=== PATIENT | female | born 1940 | race Caucasian/White ===

== ENCOUNTER → 2018-02-25 11:29 | Outpatient (CLI) | payer OTHER, MEDICAID, SELFPAY ==
[2018-02-25 12:11] LABS: Add Manual Diff / Slide Review NO; Basophils Percent Auto 1.1 % (0-2); Eosinophils Percent Auto 2.8 % (2-4); Hematocrit 43.2 % (36-46); Hemoglobin 14.6 g/dL (12.0-16.0); Lymphocytes Percent Auto 22.3 % (25-40); Mean Corpuscular HGB Conc 33.7 % (30-36); Mean Corpuscular Hemoglobin 31.7 PG (26-34); Mean Corpuscular Volume 94.2 fL (80-100); Monocytes Percent Auto 7.6 % (3-14); Neutrophils Absolute Auto 4900 /uL (3000-5900); Neutrophils Percent Auto 66.2 % (50-75); Platelet Count 233 X10^3/uL (150-400); Red Blood Cell Count 4.59 X10^6/uL (4.0-5.2); Red Cell Distribution Width 13.4 % (11.6-14.8); White Blood Cell Count 7.4 X10^3/uL (4.5-11.0)
[2018-02-25 12:59] LABS: Alanine Aminotransferase 20 IU/L (9-52); Albumin 4.2 g/dL (3.5-5.0); Albumin Globulin Ratio 1.4 (1.0-2.8); Alkaline Phosphatase 66 U/L (38-126); Aspartate Aminotransferase 31 IU/L (14-36); BUN Creatinine Ratio 14.5 (6-22); Bilirubin Total 0.7 mg/dL (0.2-1.3); Blood Urea Nitrogen 16 mg/dL (7-17); Calcium 9.3 mg/dL (8.4-10.2); Carbon Dioxide 34 mmol/L (22-32); Chloride 100 mmol/L (98-107); Cholesterol 241 mg/dL (140-199); Estimated Glomerular Filt Rate 48.3 mL/min (>60); Glucose 88 mg/dL (80-110); HDL Cholesterol 68 mg/dL (40-60); HEMOLYSIS < 15 (0-50); LDL Cholesterol Calculated 149 mg/dL (<100); Potassium 4.8 mmol/L (3.4-5.1); Sodium 142 mmol/L (137-145); Total Protein 7.2 g/dL (6.3-8.2); Triglycerides 119 mg/dL (35-150)
== END ==
PROVIDERS: Visit Provider Nurse Practitioner
DX: E78.2 Mixed hyperlipidemia (principal)
CPT/HCPCS: 36415; 80053; 80061; 85025

== ENCOUNTER → 2018-03-29 07:51 | Outpatient (CLI) | payer OTHER, MEDICAID, SELFPAY ==
[2018-03-29 09:17] LABS: Blood Urea Nitrogen 16 mg/dL (7-17); Calcium 9.4 mg/dL (8.4-10.2); Carbon Dioxide 29 mmol/L (22-32); Chloride 101 mmol/L (98-107); Estimated Glomerular Filt Rate 53.9 mL/min (>60); Glucose 101 mg/dL (80-110); HEMOLYSIS < 15 (0-50); Potassium 4.8 mmol/L (3.4-5.1); Sodium 141 mmol/L (137-145)
== END ==
PROVIDERS: Visit Provider Nurse Practitioner
DX: N28.9 Disorder of kidney and ureter, unspecified (principal)
CPT/HCPCS: 36415; 80048

== ENCOUNTER → 2018-04-26 08:19 | Outpatient (CLI) | payer OTHER, MEDICAID, SELFPAY ==
--- NOTE | 2018-04-26 08:22 | DI.RAD.S_ITS ---
PROCEDURE: XR CHEST 2V INDICATIONS: COUGH TECHNIQUE: 2 views of the chest were acquired. COMPARISON: [facility], CT, CT ANGIO CHEST PE, 12/21/2014, 12:05. [facility], CR, XR CHEST 2VW, 05/02/2015, 9:16. FINDINGS: Surgical changes and devices: None. Lungs and pleura: No pleural effusions or pneumothorax. Lungs are clear, aside from mild bibasilar scarring.. Mediastinum: Mediastinal contours are normal. Heart size is normal. Bones and chest wall: No suspicious bony abnormalities. Soft tissues appear unremarkable. IMPRESSION: Bibasilar scarring. No acute cardiopulmonary disease. Dictated by: David Walsh RRA Interpreted: Luz Elena Butcher MD on 04/26/2018 at 10:01 Approved by: Luz Elena Butcher MD, PhD on 04/26/2018 at 16:21
== END ==
PROVIDERS: Visit Provider Nurse Practitioner
DX: R05 Cough (principal); J98.4 Other disorders of lung
CPT/HCPCS: 71046

== ENCOUNTER → 2018-06-04 15:15 | Outpatient (CLI) | payer OTHER, MEDICAID, SELFPAY ==
[2018-06-04 16:44] LABS: Add Manual Diff / Slide Review NO; Basophils Absolute Auto 100 /uL (0-100); Eosinophils Absolute Auto 200 /uL (0-450); Eosinophils Percent Auto 2.7 % (2-4); Hematocrit 44.1 % (36-46); Hemoglobin 14.8 g/dL (12.0-16.0); Lymphocytes Absolute Auto 1500 /uL (1100-4500); Lymphocytes Percent Auto 20.1 % (25-40); Mean Corpuscular HGB Conc 33.5 % (30-36); Mean Corpuscular Hemoglobin 31.4 PG (26-34); Mean Corpuscular Volume 93.8 fL (80-100); Monocytes Absolute Auto 700 /uL (0-900); Monocytes Percent Auto 10.3 % (3-14); Neutrophils Absolute Auto 4800 /uL (1500-7000); Neutrophils Percent Auto 65.9 % (50-75); Platelet Count 257 X10^3/uL (150-400); Red Cell Distribution Width 13.5 % (11.6-14.8); White Blood Cell Count 7.3 X10^3/uL (4.5-11.0)
[2018-06-04 17:00] LABS: Alanine Aminotransferase 21 IU/L (9-52); Albumin 4.3 g/dL (3.5-5.0); Albumin Globulin Ratio 1.3 (1.0-2.8); Alkaline Phosphatase 74 U/L (38-126); Aspartate Aminotransferase 19 IU/L (14-36); Bilirubin Total 0.6 mg/dL (0.2-1.3); Blood Urea Nitrogen 18 mg/dL (7-17); Calcium 9.6 mg/dL (8.4-10.2); Carbon Dioxide 25 mmol/L (22-32); Chloride 103 mmol/L (98-107); Estimated Glomerular Filt Rate 43.7 mL/min (>60); Globulin 3.2 g/dL (1.7-4.1); Glucose 106 mg/dL (80-110); HEMOLYSIS 28 (0-50); Potassium 4.4 mmol/L (3.4-5.1); Sodium 138 mmol/L (137-145); Total Protein 7.5 g/dL (6.3-8.2)
== END ==
PROVIDERS: Visit Provider Physician Assistant
DX: R30.0 Dysuria (principal); R31.9 Hematuria, unspecified
CPT/HCPCS: 80053; 85025; 87077; 87086; 87186

== ENCOUNTER → 2018-06-09 11:03 | Outpatient (CLI) | payer OTHER, MEDICAID, SELFPAY ==
--- NOTE | 2018-06-09 11:07 | DI.RAD.S_ITS ---
PROCEDURE: XR SHOULDER LT MIN 2V INDICATIONS: left shoulder pain TECHNIQUE: 3 views of the shoulder were acquired. COMPARISON: None. FINDINGS: Bones: No fractures or dislocations. No suspicious bony lesions. Visualized ribs appear intact. Severe scoliosis. There is glenohumeral degenerative spurring and subchondral sclerosis. Soft tissues: No suspicious soft tissue calcifications. IMPRESSION: Mild left shoulder joint degeneration. Scoliosis. Dictated by: Francisco Javier Padilla M.D. on 06/09/2018 at 11:35 Approved by: Francisco Javier Padilla M.D. on 06/09/2018 at 11:37
== END ==
PROVIDERS: Visit Provider Physician Assistant
DX: M25.512 Pain in left shoulder (principal); M19.012 Primary osteoarthritis, left shoulder; M41.9 Scoliosis, unspecified
CPT/HCPCS: 73030

== ENCOUNTER → 2018-06-22 14:05 | Outpatient (CLI) | payer OTHER, MEDICAID, SELFPAY ==
--- NOTE | 2018-06-22 | DI.RAD.S_ITS ---
PROCEDURE: XR CHEST 2V INDICATIONS: COUGH TECHNIQUE: 2 views of the chest were acquired. COMPARISON: [facility], CR, XR CHEST 2VW, 05/02/2015, 9:16. [facility], CR, XR CHEST 2V, 04/26/2018, 8:22. FINDINGS: Surgical changes and devices: None. Lungs and pleura: Lungs are hyperinflated. Bibasilar opacities may be scars, atelectasis or pneumonia. Small right pleural effusion may be present. No pneumothorax. Mediastinum: Mediastinal contours are normal. Heart size is normal. Bones and chest wall: No suspicious bony abnormalities. Soft tissues appear unremarkable. IMPRESSION: 1. Bibasilar opacities may be scars, atelectasis or pneumonia. 2. COPD. 3. Possible small left effusion. Dictated by: Ponce Bergman M.D. on 06/22/2018 at 16:40 Approved by: Ponce Bergman M.D. on 06/22/2018 at 16:42
== END ==
PROVIDERS: PCP Nurse Practitioner; Visit Provider Physician Assistant
DX: R05 Cough (principal); J44.9 Chronic obstructive pulmonary disease, unspecified
CPT/HCPCS: 71046

== ENCOUNTER → 2018-08-17 07:47 | Outpatient (CLI) | payer OTHER, MEDICAID, SELFPAY ==
[2018-08-17 09:47] LABS: Alanine Aminotransferase 14 IU/L (9-52); Albumin 3.9 g/dL (3.5-5.0); Albumin Globulin Ratio 1.3 (1.0-2.8); Alkaline Phosphatase 70 U/L (38-126); Aspartate Aminotransferase 13 IU/L (14-36); Bilirubin Total 0.8 mg/dL (0.2-1.3); Blood Urea Nitrogen 15 mg/dL (7-17); Calcium 8.7 mg/dL (8.4-10.2); Carbon Dioxide 29 mmol/L (22-32); Chloride 102 mmol/L (98-107); Cholesterol 160 mg/dL (140-199); Estimated Glomerular Filt Rate 53.9 mL/min (>60); Glucose 96 mg/dL (80-110); HDL Cholesterol 47 mg/dL (40-60); HEMOLYSIS < 15 (0-50); LDL Cholesterol Calculated 90 mg/dL (<100); Sodium 139 mmol/L (137-145); Total Protein 6.9 g/dL (6.3-8.2); Triglycerides 115 mg/dL (35-150)
== END ==
PROVIDERS: PCP Nurse Practitioner; Visit Provider Nurse Practitioner
DX: E78.2 Mixed hyperlipidemia (principal)
CPT/HCPCS: 36415; 80053; 80061

== ENCOUNTER → 2018-09-02 12:02 | Outpatient (CLI) | payer OTHER, MEDICAID, SELFPAY | PROVIDERS: PCP Nurse Practitioner; Visit Provider Nurse Practitioner | DX: I51.7 Cardiomegaly (principal) ==

== ENCOUNTER 2018-09-14 09:00 | Outpatient (RCR) | payer OTHER, MEDICAID, SELFPAY ==
--- NOTE | 2018-07-15 16:00 | PT.OIE ---
Current Diagnoses Pain in left shoulder (07/15/18) Stiffness of left shoulder, not elsewhere classified (07/15/18) Muscle weakness (generalized) (07/15/18) Provider Visit Care Team Role Provider Type SADA Wood Primary Care Provider Non-Staff Specialty: Medical Address: [address] [place] [address], [phone] Email: David Oliver PA-C Attending Provider [employer] Project Manager Specialty: Medical Address: [address] [place] [address], [id number] Email: Physical Therapy Initial Evaluation PT-OP-A Visit Information Start: 07/16/18 15:05 Freq: Status: Active Protocol: Document 07/15/18 16:00 RCC (Rec: 07/16/18 15:24 RCC [email or web address]) Out-Patient Physical Therapy Visit Information Visit Information Visit Type Initial Evaluation Visit Start Time 16:00 Visit Stop Time 16:55 Total Visit Minutes 55 Visit Number 1 Number of CASH MANAGEMENT COORDINATOR Visits 0 Evaluation Information Evaluation Date 07/15/18 PT-OP-B Current Condition Start: 07/16/18 15:05 Freq: Status: Active Protocol: Document 07/15/18 16:00 RCC (Rec: 07/16/18 17:15 RCC [email or web address]) Current Condition History of Current Condition Onset Date April 2018 or May 2018 Current Complaints L shoulder pain, weakness History of Current Condition Pt is a 78 y/o female presenting to physical therapy with a c/o L shoulder pain. Onset in April 2018 or May 2018, pt woke up one morning with shoulder pain on the L side. She felt like she may have slept on it wrong, but continued to be painful, along with weakness and worsening ROM. She denies any trauma to the L shoulder. She also denies any numbness or tingling. Pt is R hand dominant. Aggravating factors include: reaching behind her back and away from her body. The only relieving factor the pt has found is to not move her L hand or arm and always support it closer to her body. She has not found any medications to help and she has done ice with some assistance for short periods. Radiograph of L shoulder showed glenohumeral degenerative spurring and subchondral sclerosis, no calcifications in soft tissue. Radiograph also showed severe scoliosis. Pt has not had MRI yet. She does an exercises class weekly at the [facility], but is unable to participate in UE work due to her shoulder pain and limited motion. Prior Treatments and Tests radiograph (see above) Future Testing and Treatments Planned MRI of L shoulder (if PT fails ) Treatment Goals Patient/Caregiver Goals to be able to participate in [facility] strength and balance class, decrease pain Prior Functional Status Baseline Function- Recreation/Hobbies able to participate in [facility] balance and strength class without restrictions or pain Current Functional Impairments (Reported) Functional Limitations- Recreation/ unable to do UE work during Hobbies the [facility] strength and balance class. Personal Factors Other Personal Factors That May Effect hearing impairment (loss of Therapy/Recovery hearing but unable to afford hearing aids per pt), age- related visual problems, depression, pt reports tremors (on carbidopa- levadopa) PT-OP-C Subjective Start: 07/16/18 15:05 Freq: Status: Active Protocol: Document 07/15/18 16:00 RCC (Rec: 07/16/18 17:15 [facility] [email or web address]) OP-PT Subjective Patient Comments Patient Reported Progress Worse Patient Questionnaires Quick Dash- Upper Extremity Quick Dash UE Score 59.1 OP-PT Pain Assessment Location L shoulder Intensity 5 Scale Used Numeric (1 - 10) PT-OP-E Functional Tests Start: 07/16/18 15:05 Freq: Status: Active Protocol: Document 07/15/18 16:00 RCC (Rec: 07/16/18 17:15 [facility] [email or web address]) Functional Tests Apley's Scratch Test Action 1: The subject is instructed to touch the opposite shoulder with his/her hand. This motion checks Glenohumeral adduction, internal rotation , horizontal adduction and scapular protraction Action 2: The subject is instructed to place his/her arm overhead and reach behind the neck to touch his/her upper back. This motion checks Glenohumeral abduction, external rotation and scapular upward rotation and elevation. Action 3: The subject puts his/her hand on the lower back and reaches upward as far as possible. This motion checks glenohumeral adduction, internal rotation and scapular retraction with downward rotation Action 1- Left unable Action 1- Right able to perform Action 2- Left top of head Action 2- Right occiput Action 3- Left L5 Action 3- Right T6 PT-OP-F Manual Assessment Start: 07/16/18 15:05 Freq: Status: Active Protocol: Document 07/15/18 16:00 RCC (Rec: 07/16/18 17:15 RCC [email or web address]) Manual Assessments Soft Tissue Assessment Soft Tissue Mobility Assessment Tenderness to palpation: L supraspinatus, infraspinatus, B rhomboids, L UT and levator, L bicep tendon (long head), L anterior deltoid and pecs PT-OP-H Neuro Start: 07/16/18 15:05 Freq: Status: Active Protocol: Document 07/15/18 16:00 RCC (Rec: 07/16/18 17:15 RCC [email or web address]) Sensation Evaluation Gross Sensation Gross Sensation WNL Deep Tendon Reflex & Clonus Assessment Deep Tendon Reflex Bilateral Brachioradialis Deep Tendon Reflex 2+ Normal Bilateral Tricep Deep Tendon Reflex 2+ Normal Bilateral Bicep Deep Tendon Reflex 2+ Normal PT-OP-J Posture/Palpation/Skin Start: 07/16/18 15:05 Freq: Status: Active Protocol: Document 07/15/18 16:00 RCC (Rec: 07/16/18 17:15 RCC [email or web address]) Posture Evaluation Comments Posture Comments moderate forward head and rounded shoulders. L shoulder elevated with position of L shoulder adduction, IR and elbow flexion. PT-OP-K Range of Motion Start: 07/16/18 15:05 Freq: Status: Active Protocol: Document 07/15/18 16:00 RCC (Rec: 07/16/18 17:15 RCC [email or web address]) Shoulder Goniometric Range of Motion Shoulder Measured in Degrees Left Passive Testing Position Supine Flexion 145 Abduction 103 External Rotation at 0 degrees Abduction 50 Internal Rotation 60 Left Active Testing Position Sitting Flexion 90 Abduction 55 Right Passive Testing Position Supine Flexion 170 Abduction 165 External Rotation at 90 degrees 90 Abduction Internal Rotation 80 Right Active Testing Position Sitting Flexion 170 Abduction 160 PT-OP-L Special Tests Start: 07/16/18 15:05 Freq: Status: Active Protocol: Document 07/15/18 16:00 RCC (Rec: 07/16/18 17:15 RCC [email or web address]) Special Tests Cervical Spine Special Tests Spurling's Test Test Results negative Foraminal Compression Test Results negative Shoulder Special Tests Yergason's Biceps Test Results positive L Speed's Biceps Test Results positive L Bansal Kelvin Impingement Test Results positive L Empty Can Test Results positive L Drop Arm Rotator Cuff Test Results positive L Belly Press Test Results negative Lift-Off Rotator Cuff Test Results negative Comments painful but able to do with L hand PT-OP-M Strength Start: 07/16/18 15:05 Freq: Status: Active Protocol: Document 07/15/18 16:00 RCC (Rec: 07/16/18 17:15 [facility] [email or web address]) Shoulder Strength Shoulder Manual Muscle Testing Left Flexion 2 Poor Abduction (C5) 2 Poor External Rotation 3 Fair Internal Rotation 3 Fair Horizontal Abduction 3+ Fair+ Horizontal Adduction 3+ Fair+ Right Flexion 5 Normal Abduction (C5) 5 Normal External Rotation 5 Normal Internal Rotation 5 Normal Horizontal Abduction 5 Normal Horizontal Adduction 5 Normal Elbow/Forearm Strength Elbow and Forearm Manual Muscle Testing Right Flexion (C6) 3+ Fair+ Extension (C7) 4 Good Left Flexion (C6) 4+ Good+ Extension (C7) 4+ Good+ PT-OP-Q Treatments Start: 07/16/18 15:05 Freq: Status: Active Protocol: Document 07/15/18 16:00 RCC (Rec: 07/16/18 17:15 [facility] [email or web address]) Therapeutic Exercises Supine Exercises scapular retraction/shoulder extension Supine Exercise Name scapular retraction lying supine on table Side bilateral Reps/Minutes x10 T-bar Supine Exercise Name shoulder flexion and ER/IR Side bilateral Reps/Minutes x5 each PT-OP-R Modalities Start: 07/16/18 15:05 Freq: Status: Active Protocol: Document 07/15/18 16:00 RCC (Rec: 07/16/18 17:15 [facility] [email or web address]) Hot Pack/Cold Pack Treatment Cold Pack Location L shoulder Patient Position Hooklying Treatment Duration (minutes) 10 Patient Tolerance Good PT-OP-T Assessment and Plan Start: 07/16/18 15:05 Freq: Status: Active Protocol: Document 07/15/18 16:00 RCC (Rec: 07/16/18 17:15 [facility] [email or web address]) Physical Therapy Assessment Rehab Potential Rehabilitation Potential Fair Evaluation Complexity Number of Personal Factors/Comorbidities 3 or More Number of Body Systems Impaired 4 or More Clinical Presentation at Evaluation Evolving Impairments Impairments Activity Tolerance Functional Activities Pain Posture ROM Soft Tissue Mobility Strength Goals L shoulder strength Impairment L shoulder strength Short Term Goal (STG) L shoulder MMT at least 3+/5 with flexion, abduction, ER, and IR. STG Duration 6 weeks In Service Educator Goal (LTG) L shoulder MMT at least 4/5 with flexion, abduction, ER, and IR to improve ability to tolerate handling/holding light to moderate objects without increased L shoulder pain, and to return to her [facility] strengthening course without restrictions. LTG Duration 12 weeks L shoulder ROM Impairment L shoulder ROM Short Term Goal (STG) L shoulder AROM (sitting for flexion and abduction, supine for IR and ER): flexion 120 deg, abduction 100 deg, ER 65 deg, IR 70 deg. STG Duration 6 weeks Halfway Goal (LTG) L shoulder AROM (sitting for flexion and abduction, supine for IR and ER): flexion 150 deg, abduction 120 deg, ER 75 deg, IR 80 deg to be able to reach behind back, overhead, and away from body, and to return to her [facility] strengthening course without restrictions. LTG Duration 12 weeks pain L shoulder Impairment 5/10 rating of L shoulder pain In Service Educator Goal (LTG) 3/10 or less rating of pain in the L shoulder with normal daily activities (i.e. don/ doffing jacket). LTG Duration 12 weeks Quick DASH Impairment 59.1 disability score on the Quick DASH Short Term Goal (STG) <50 disability score on the Quick DASH to demonstrate improve functional ability of the LUE. STG Duration 6 weeks In Service Educator Goal (LTG) 40 or less disability score on the Quick DASH to demonstrate improve functional ability of the LUE. LTG Duration 12 weeks Assessment Summary Assessment Pt presents with signs and symptoms consistent with likely rotator cuff tear and possible tear or tendinosis of biceps long head tendon. Pt difficult to assess further with special testing due to limited ROM and pain. If pt does not improve with physical therapy, recommend MRI of L shoulder to further assist with treatment and plan for pt recovery and/or options going forward. Pt with limited ROM and strength of the L shoulder , and has not been using her L arm functionally for 1-2 months, limiting her ability to perform daily tasks and unable to participate in her usual recreational activities (balance and strengthening class at the [facility]). Given the pt's limitations with LUE function, strenth, ROM and pain in the L shoulder , she will likely require a prolonged amount of time participating in physical therapy to make significant progress. Pt able to tolerate light AAROM activities today, and will requir further skilled outpatient physical therapy to progress her ROM, strength, and establish and monitor a home exercise program to be performed and progressed as tolerated. Pt also would greatly benefit from modalities and manual therapy to decrease pain. Physical Therapy Plan Frequency and Duration Frequency of Treatment 2x/Week Duration of Treatment 12 weeks Plan of Care Start Date 07/15/18 Plan of Care End Date 10/07/18 Therapeutic Interventions Therapeutic Interventions Aquatic Therapy Home Exercise Program Joint Mobilizations Manual Therapy Neuromuscular Re-education Patient/Caregiver Education Self-Care/Home Management Soft Tissue Mobilization Taping Therapeutic Activities Therapeutic Exercises Modalities Cold Pack/Ice Massage Electric Stimulation Hot Packs Iontophoresis Ultrasound Other Therapeutic Interventions Iontophoresis with dexamethasone 4 mg/mL. Next Visit Focus/Plan Next Note Type Treatment Note Next Visit Plan advance AAROM as tolerated with T-bar, leyla's, modalities including ultrasound and ice for pain; scapular retraction in sitting ; UT and levator stretching
--- NOTE | 2018-07-20 10:34 | PT.OTN ---
Current Diagnoses Pain in left shoulder (07/20/18) Physical Therapy Treatment Note PT-OP-A Visit Information Start: 07/16/18 15:05 Freq: Status: Active Protocol: Document 07/20/18 10:25 GGD (Rec: 07/20/18 10:33 GGD [email or web address]) Out-Patient Physical Therapy Visit Information Visit Information Visit Type Treatment Note Visit Start Time 09:00 Visit Stop Time 09:50 Total Visit Minutes 50 Visit Number 2 Number of HASH SLINGER Visits 1 Evaluation Information Evaluation Date 07/15/18 PT-OP-B Current Condition Start: 07/16/18 15:05 Freq: Status: Active Protocol: Document 07/15/18 16:00 RCC (Rec: 07/16/18 17:15 RCC [email or web address]) Current Condition History of Current Condition Onset Date April 2018 or May 2018 Current Complaints L shoulder pain, weakness History of Current Condition Pt is a 78 y/o female presenting to physical therapy with a c/o L shoulder pain. Onset in April 2018 or May 2018, pt woke up one morning with shoulder pain on the L side. She felt like she may have slept on it wrong, but continued to be painful, along with weakness and worsening ROM. She denies any trauma to the L shoulder. She also denies any numbness or tingling. Pt is R hand dominant. Aggravating factors include: reaching behind her back and away from her body. The only relieving factor the pt has found is to not move her L hand or arm and always support it closer to her body. She has not found any medications to help and she has done ice with some assistance for short periods. Radiograph of L shoulder showed glenohumeral degenerative spurring and subchondral sclerosis, no calcifications in soft tissue. Radiograph also showed severe scoliosis. Pt has not had MRI yet. She does an exercises class weekly at the [employer] [facility] [place], but is unable to participate in UE work due to her shoulder pain and limited motion. Prior Treatments and Tests radiograph (see above) Future Testing and Treatments Planned MRI of L shoulder (if PT fails ) Treatment Goals Patient/Caregiver Goals to be able to participate in [facility] strength and balance class, decrease pain Prior Functional Status Baseline Function- Recreation/Hobbies able to participate in [employer] [facility] [employer] balance and strength class without restrictions or pain Current Functional Impairments (Reported) Functional Limitations- Recreation/ unable to do UE work during Hobbies the [facility] strength and balance class. Personal Factors Other Personal Factors That May Effect hearing impairment (loss of Therapy/Recovery hearing but unable to afford hearing aids per pt), age- related visual problems, depression, pt reports tremors (on carbidopa- levadopa) PT-OP-C Subjective Start: 07/16/18 15:05 Freq: Status: Active Protocol: Document 07/20/18 10:25 GGD (Rec: 07/20/18 10:33 GGD [email or web address]) OP-PT Subjective Patient Comments Patient Comments Pt states that her shoulder was sore after climbing in and out of her daughters truck. PT-OP-E Functional Tests Start: 07/16/18 15:05 Freq: Status: Active Protocol: Document 07/15/18 16:00 RCC (Rec: 07/16/18 17:15 RCC [email or web address]) Functional Tests Apley's Scratch Test Action 1: The subject is instructed to touch the opposite shoulder with his/her hand. This motion checks Glenohumeral adduction, internal rotation , horizontal adduction and scapular protraction Action 2: The subject is instructed to place his/her arm overhead and reach behind the neck to touch his/her upper back. This motion checks Glenohumeral abduction, external rotation and scapular upward rotation and elevation. Action 3: The subject puts his/her hand on the lower back and reaches upward as far as possible. This motion checks glenohumeral adduction, internal rotation and scapular retraction with downward rotation Action 1- Left unable Action 1- Right able to perform Action 2- Left top of head Action 2- Right occiput Action 3- Left L5 Action 3- Right T6 PT-OP-F Manual Assessment Start: 07/16/18 15:05 Freq: Status: Active Protocol: Document 07/15/18 16:00 RCC (Rec: 07/16/18 17:15 RCC [email or web address]) Manual Assessments Soft Tissue Assessment Soft Tissue Mobility Assessment Tenderness to palpation: L supraspinatus, infraspinatus, B rhomboids, L UT and levator, L bicep tendon (long head), L anterior deltoid and pecs PT-OP-H Neuro Start: 07/16/18 15:05 Freq: Status: Active Protocol: Document 07/15/18 16:00 RCC (Rec: 07/16/18 17:15 RCC [email or web address]) Sensation Evaluation Gross Sensation Gross Sensation WNL Deep Tendon Reflex & Clonus Assessment Deep Tendon Reflex Bilateral Brachioradialis Deep Tendon Reflex 2+ Normal Bilateral Tricep Deep Tendon Reflex 2+ Normal Bilateral Bicep Deep Tendon Reflex 2+ Normal PT-OP-J Posture/Palpation/Skin Start: 07/16/18 15:05 Freq: Status: Active Protocol: Document 07/15/18 16:00 RCC (Rec: 07/16/18 17:15 RCC [email or web address]) Posture Evaluation Comments Posture Comments moderate forward head and rounded shoulders. L shoulder elevated with position of L shoulder adduction, IR and elbow flexion. PT-OP-K Range of Motion Start: 07/16/18 15:05 Freq: Status: Active Protocol: Document 07/15/18 16:00 RCC (Rec: 07/16/18 17:15 RCC [email or web address]) Shoulder Goniometric Range of Motion Shoulder Measured in Degrees Left Passive Testing Position Supine Flexion 145 Abduction 103 External Rotation at 0 degrees Abduction 50 Internal Rotation 60 Left Active Testing Position Sitting Flexion 90 Abduction 55 Right Passive Testing Position Supine Flexion 170 Abduction 165 External Rotation at 90 degrees 90 Abduction Internal Rotation 80 Right Active Testing Position Sitting Flexion 170 Abduction 160 PT-OP-L Special Tests Start: 07/16/18 15:05 Freq: Status: Active Protocol: Document 07/15/18 16:00 RCC (Rec: 07/16/18 17:15 RCC [email or web address]) Special Tests Cervical Spine Special Tests Spurling's Test Test Results negative Foraminal Compression Test Results negative Shoulder Special Tests Yergason's Biceps Test Results positive L Speed's Biceps Test Results positive L Bansal Kelvin Impingement Test Results positive L Empty Can Test Results positive L Drop Arm Rotator Cuff Test Results positive L Belly Press Test Results negative Lift-Off Rotator Cuff Test Results negative Comments painful but able to do with L hand PT-OP-M Strength Start: 07/16/18 15:05 Freq: Status: Active Protocol: Document 07/15/18 16:00 RCC (Rec: 07/16/18 17:15 RCC [email or web address]) Shoulder Strength Shoulder Manual Muscle Testing Left Flexion 2 Poor Abduction (C5) 2 Poor External Rotation 3 Fair Internal Rotation 3 Fair Horizontal Abduction 3+ Fair+ Horizontal Adduction 3+ Fair+ Right Flexion 5 Normal Abduction (C5) 5 Normal External Rotation 5 Normal Internal Rotation 5 Normal Horizontal Abduction 5 Normal Horizontal Adduction 5 Normal Elbow/Forearm Strength Elbow and Forearm Manual Muscle Testing Right Flexion (C6) 3+ Fair+ Extension (C7) 4 Good Left Flexion (C6) 4+ Good+ Extension (C7) 4+ Good+ PT-OP-Q Treatments Start: 07/16/18 15:05 Freq: Status: Active Protocol: Document 07/20/18 10:25 GGD (Rec: 07/20/18 10:33 GGD [email or web address]) Therapeutic Exercises Supine Exercises 1 Supine Exercise Name supine veena ut stretch Side bilateral scapular retraction/shoulder extension Supine Exercise Name scapular retraction lying supine on table Side bilateral Reps/Minutes x10 T-bar Supine Exercise Name shoulder flexion and ER/IR Side bilateral Reps/Minutes x5 each Sitting Exercises pulleys Sitting Exercise Name flexion and abduction Side left Reps/Minutes 10 x each Manual Therapy Treatment Soft Tissue Mobilization 1 Body Location left upper trap, pec, and levator Mobilization Type Myofascial Release Rolling Intensity/Depth Superficial Body Position Supine PT-OP-R Modalities Start: 07/16/18 15:05 Freq: Status: Active Protocol: Document 07/20/18 10:25 GGD (Rec: 07/20/18 10:33 GGD [email or web address]) Hot Pack/Cold Pack Treatment Cold Pack Location L shoulder Patient Position Hooklying Treatment Duration (minutes) 10 Patient Tolerance Good Ultrasound Therapy Treatment left shoulder Treatment Duration (minutes) 8 Patient Position Supine Coupling Medium Ultrasound Gel Frequency Setting (mHz) 3 Mode Setting Continuous PT-OP-T Assessment and Plan Start: 07/16/18 15:05 Freq: Status: Active Protocol: Document 07/20/18 10:25 GGD (Rec: 07/20/18 10:33 GGD [email or web address]) Physical Therapy Assessment Assessment Summary Assessment Pt need cues for exerices. She had good tolerance to light AAROM activities. She did have decrease in pain with veena therapy and modalities. Physical Therapy Plan Frequency and Duration Frequency of Treatment 2x/Week Duration of Treatment 12 weeks Plan of Care Start Date 07/15/18 Plan of Care End Date 10/07/18 Therapeutic Interventions Therapeutic Interventions Aquatic Therapy Home Exercise Program Joint Mobilizations Manual Therapy Neuromuscular Re-education Patient/Caregiver Education Self-Care/Home Management Soft Tissue Mobilization Taping Therapeutic Activities Therapeutic Exercises Modalities Cold Pack/Ice Massage Electric Stimulation Hot Packs Iontophoresis Ultrasound Other Therapeutic Interventions Iontophoresis with dexamethasone 4 mg/mL. Next Visit Focus/Plan Next Note Type Treatment Note Next Visit Plan Progress ROM activities and pain control
--- NOTE | 2018-07-22 16:14 | PT.OTN ---
Current Diagnoses Pain in left shoulder (07/22/18) Physical Therapy Treatment Note PT-OP-A Visit Information Start: 07/16/18 15:05 Freq: Status: Active Protocol: Document 07/22/18 09:55 LRN (Rec: 07/22/18 10:34 LRN [id number]) Out-Patient Physical Therapy Visit Information Visit Information Visit Type Treatment Note Visit Start Time 09:55 Visit Stop Time 09:44 Total Visit Minutes 49 Visit Number 2 Number of WOOD GOUGER Visits 1 Evaluation Information Evaluation Date 07/15/18 PT-OP-B Current Condition Start: 07/16/18 15:05 Freq: Status: Active Protocol: Document 07/15/18 16:00 RCC (Rec: 07/16/18 17:15 RCC [email or web address]) Current Condition History of Current Condition Onset Date April 2018 or May 2018 Current Complaints L shoulder pain, weakness History of Current Condition Pt is a 78 y/o female presenting to physical therapy with a c/o L shoulder pain. Onset in April 2018 or May 2018, pt woke up one morning with shoulder pain on the L side. She felt like she may have slept on it wrong, but continued to be painful, along with weakness and worsening ROM. She denies any trauma to the L shoulder. She also denies any numbness or tingling. Pt is R hand dominant. Aggravating factors include: reaching behind her back and away from her body. The only relieving factor the pt has found is to not move her L hand or arm and always support it closer to her body. She has not found any medications to help and she has done ice with some assistance for short periods. Radiograph of L shoulder showed glenohumeral degenerative spurring and subchondral sclerosis, no calcifications in soft tissue. Radiograph also showed severe scoliosis. Pt has not had MRI yet. She does an exercises class weekly at the [employer] [place], but is unable to participate in UE work due to her shoulder pain and limited motion. Prior Treatments and Tests radiograph (see above) Future Testing and Treatments Planned MRI of L shoulder (if PT fails ) Treatment Goals Patient/Caregiver Goals to be able to participate in [facility] strength and balance class, decrease pain Prior Functional Status Baseline Function- Recreation/Hobbies able to participate in [facility] balance and strength class without restrictions or pain Current Functional Impairments (Reported) Functional Limitations- Recreation/ unable to do UE work during Hobbies the [facility] strength and balance class. Personal Factors Other Personal Factors That May Effect hearing impairment (loss of Therapy/Recovery hearing but unable to afford hearing aids per pt), age- related visual problems, depression, pt reports tremors (on carbidopa- levadopa) PT-OP-C Subjective Start: 07/16/18 15:05 Freq: Status: Active Protocol: Document 07/22/18 09:55 LRN (Rec: 07/22/18 10:34 LRN [id number]) OP-PT Subjective Patient Comments Patient Comments States her L shoulder pain is 4/10. PT-OP-E Functional Tests Start: 07/16/18 15:05 Freq: Status: Active Protocol: Document 07/15/18 16:00 RCC (Rec: 07/16/18 17:15 RCC [email or web address]) Functional Tests Apley's Scratch Test Action 1: The subject is instructed to touch the opposite shoulder with his/her hand. This motion checks Glenohumeral adduction, internal rotation , horizontal adduction and scapular protraction Action 2: The subject is instructed to place his/her arm overhead and reach behind the neck to touch his/her upper back. This motion checks Glenohumeral abduction, external rotation and scapular upward rotation and elevation. Action 3: The subject puts his/her hand on the lower back and reaches upward as far as possible. This motion checks glenohumeral adduction, internal rotation and scapular retraction with downward rotation Action 1- Left unable Action 1- Right able to perform Action 2- Left top of head Action 2- Right occiput Action 3- Left L5 Action 3- Right T6 PT-OP-F Manual Assessment Start: 07/16/18 15:05 Freq: Status: Active Protocol: Document 07/15/18 16:00 RCC (Rec: 07/16/18 17:15 RCC [email or web address]) Manual Assessments Soft Tissue Assessment Soft Tissue Mobility Assessment Tenderness to palpation: L supraspinatus, infraspinatus, B rhomboids, L UT and levator, L bicep tendon (long head), L anterior deltoid and pecs PT-OP-H Neuro Start: 07/16/18 15:05 Freq: Status: Active Protocol: Document 07/15/18 16:00 RCC (Rec: 07/16/18 17:15 RCC [email or web address]) Sensation Evaluation Gross Sensation Gross Sensation WNL Deep Tendon Reflex & Clonus Assessment Deep Tendon Reflex Bilateral Brachioradialis Deep Tendon Reflex 2+ Normal Bilateral Tricep Deep Tendon Reflex 2+ Normal Bilateral Bicep Deep Tendon Reflex 2+ Normal PT-OP-J Posture/Palpation/Skin Start: 07/16/18 15:05 Freq: Status: Active Protocol: Document 07/15/18 16:00 RCC (Rec: 07/16/18 17:15 RCC [email or web address]) Posture Evaluation Comments Posture Comments moderate forward head and rounded shoulders. L shoulder elevated with position of L shoulder adduction, IR and elbow flexion. PT-OP-K Range of Motion Start: 07/16/18 15:05 Freq: Status: Active Protocol: Document 07/15/18 16:00 RCC (Rec: 07/16/18 17:15 RCC [email or web address]) Shoulder Goniometric Range of Motion Shoulder Measured in Degrees Left Passive Testing Position Supine Flexion 145 Abduction 103 External Rotation at 0 degrees Abduction 50 Internal Rotation 60 Left Active Testing Position Sitting Flexion 90 Abduction 55 Right Passive Testing Position Supine Flexion 170 Abduction 165 External Rotation at 90 degrees 90 Abduction Internal Rotation 80 Right Active Testing Position Sitting Flexion 170 Abduction 160 PT-OP-L Special Tests Start: 07/16/18 15:05 Freq: Status: Active Protocol: Document 07/15/18 16:00 RCC (Rec: 07/16/18 17:15 RCC [email or web address]) Special Tests Cervical Spine Special Tests Spurling's Test Test Results negative Foraminal Compression Test Results negative Shoulder Special Tests Yergason's Biceps Test Results positive L Speed's Biceps Test Results positive L Bansal Kelvin Impingement Test Results positive L Empty Can Test Results positive L Drop Arm Rotator Cuff Test Results positive L Belly Press Test Results negative Lift-Off Rotator Cuff Test Results negative Comments painful but able to do with L hand PT-OP-M Strength Start: 07/16/18 15:05 Freq: Status: Active Protocol: Document 07/15/18 16:00 RCC (Rec: 07/16/18 17:15 RCC [email or web address]) Shoulder Strength Shoulder Manual Muscle Testing Left Flexion 2 Poor Abduction (C5) 2 Poor External Rotation 3 Fair Internal Rotation 3 Fair Horizontal Abduction 3+ Fair+ Horizontal Adduction 3+ Fair+ Right Flexion 5 Normal Abduction (C5) 5 Normal External Rotation 5 Normal Internal Rotation 5 Normal Horizontal Abduction 5 Normal Horizontal Adduction 5 Normal Elbow/Forearm Strength Elbow and Forearm Manual Muscle Testing Right Flexion (C6) 3+ Fair+ Extension (C7) 4 Good Left Flexion (C6) 4+ Good+ Extension (C7) 4+ Good+ PT-OP-Q Treatments Start: 07/16/18 15:05 Freq: Status: Active Protocol: Document 07/22/18 09:55 LRN (Rec: 07/22/18 10:34 LRN [id number]) Therapeutic Exercises Supine Exercises Shoulder ER/IR Supine Exercise Name Windshield wipe ex Reps/Minutes 10x 2 1 Supine Exercise Name supine veena ut stretch Side bilateral T-bar Supine Exercise Name shoulder flexion and ER/IR Side bilateral Reps/Minutes 10x3 each Sitting Exercises Scapular retraction Side bilateral Reps/Minutes 30x pulleys Sitting Exercise Name flexion and abduction Side left Reps/Minutes 30 x each Manual Therapy Treatment Soft Tissue Mobilization 1 Body Location left upper trap, pec, and levator, Supraspinatus Mobilization Type Myofascial Release Rolling Trigger Point Release Body Position Supine PT-OP-R Modalities Start: 07/16/18 15:05 Freq: Status: Active Protocol: Document 07/22/18 09:55 LRN (Rec: 07/22/18 10:34 LRN [id number]) Hot Pack/Cold Pack Treatment Cold Pack Location L shoulder Patient Position Hooklying Treatment Duration (minutes) 10 Patient Tolerance Good Ultrasound Therapy Treatment left shoulder Treatment Duration (minutes) 8 Patient Position Supine Coupling Medium Ultrasound Gel Frequency Setting (mHz) 3 Mode Setting Continuous Comments UT, Supraspinatus, Lateral brachium PT-OP-T Assessment and Plan Start: 07/16/18 15:05 Freq: Status: Active Protocol: Document 07/22/18 09:55 LRN (Rec: 07/22/18 10:34 LRN [id number]) Physical Therapy Assessment Assessment Summary Assessment Good tolerance to light AAROM activities. She did have decrease in pain with manual therapy. Ultrasound included lateral brachium to help with pain. Physical Therapy Plan Frequency and Duration Frequency of Treatment 2x/Week Duration of Treatment 12 weeks Plan of Care Start Date 07/15/18 Plan of Care End Date 10/07/18 Therapeutic Interventions Therapeutic Interventions Aquatic Therapy Home Exercise Program Joint Mobilizations Manual Therapy Neuromuscular Re-education Patient/Caregiver Education Self-Care/Home Management Soft Tissue Mobilization Taping Therapeutic Activities Therapeutic Exercises Modalities Cold Pack/Ice Massage Electric Stimulation Hot Packs Iontophoresis Ultrasound Other Therapeutic Interventions Iontophoresis with dexamethasone 4 mg/mL. Next Visit Focus/Plan Next Note Type Treatment Note Next Visit Plan Assess response to US to lateral brachium and modify US treatment to best benefit reduction of pain. Progress ROM activities and pain control.
--- NOTE | 2018-07-29 09:46 | PT.OTN ---
Current Diagnoses Pain in left shoulder (07/29/18) Physical Therapy Treatment Note PT-OP-A Visit Information Start: 07/16/18 15:05 Freq: Status: Active Protocol: Document 07/29/18 09:46 RCC (Rec: 07/29/18 11:48 RCC [email or web address]) Out-Patient Physical Therapy Visit Information Visit Information Visit Type Treatment Note Visit Start Time 09:46 Visit Stop Time 10:30 Total Visit Minutes 44 Visit Number 4 Number of DIRECTOR PAYMENT Visits 0 Evaluation Information Evaluation Date 07/15/18 Precautions Precautions pt with impaired vision, guide her when walking around in clinic PT-OP-B Current Condition Start: 07/16/18 15:05 Freq: Status: Active Protocol: Document 07/15/18 16:00 RCC (Rec: 07/16/18 17:15 RCC [email or web address]) Current Condition History of Current Condition Onset Date April 2018 or May 2018 Current Complaints L shoulder pain, weakness History of Current Condition Pt is a 78 y/o female presenting to physical therapy with a c/o L shoulder pain. Onset in April 2018 or May 2018, pt woke up one morning with shoulder pain on the L side. She felt like she may have slept on it wrong, but continued to be painful, along with weakness and worsening ROM. She denies any trauma to the L shoulder. She also denies any numbness or tingling. Pt is R hand dominant. Aggravating factors include: reaching behind her back and away from her body. The only relieving factor the pt has found is to not move her L hand or arm and always support it closer to her body. She has not found any medications to help and she has done ice with some assistance for short periods. Radiograph of L shoulder showed glenohumeral degenerative spurring and subchondral sclerosis, no calcifications in soft tissue. Radiograph also showed severe scoliosis. Pt has not had MRI yet. She does an exercises class weekly at the [facility], but is unable to participate in UE work due to her shoulder pain and limited motion. Prior Treatments and Tests radiograph (see above) Future Testing and Treatments Planned MRI of L shoulder (if PT fails ) Treatment Goals Patient/Caregiver Goals to [facility], decrease pain Prior Functional Status Baseline Function- Recreation/Hobbies able to participate in [employer] balance and strength class without restrictions or pain Current Functional Impairments (Reported) Functional Limitations- Recreation/ unable to do UE work during Hobbies the [facility] strength and balance class. Personal Factors Other Personal Factors That May Effect hearing impairment (loss of Therapy/Recovery hearing but unable to afford hearing aids per pt), age- related visual problems, depression, pt reports tremors (on carbidopa- levadopa) PT-OP-C Subjective Start: 07/16/18 15:05 Freq: Status: Active Protocol: Document 07/29/18 09:46 RCC (Rec: 07/29/18 11:48 RCC [email or web address]) OP-PT Subjective Patient Comments Patient Comments Pt is noticing some improvements with decreased shoulder pain. Her ROM is still limited by pain per her reports. Patient Reported Progress Improving PT-OP-E Functional Tests Start: 07/16/18 15:05 Freq: Status: Active Protocol: Document 07/15/18 16:00 RCC (Rec: 07/16/18 17:15 RCC [email or web address]) Functional Tests Apley's Scratch Test Action 1: The subject is instructed to touch the opposite shoulder with his/her hand. This motion checks Glenohumeral adduction, internal rotation , horizontal adduction and scapular protraction Action 2: The subject is instructed to place his/her arm overhead and reach behind the neck to touch his/her upper back. This motion checks Glenohumeral abduction, external rotation and scapular upward rotation and elevation. Action 3: The subject puts his/her hand on the lower back and reaches upward as far as possible. This motion checks glenohumeral adduction, internal rotation and scapular retraction with downward rotation Action 1- Left unable Action 1- Right able to perform Action 2- Left top of head Action 2- Right occiput Action 3- Left L5 Action 3- Right T6 PT-OP-F Manual Assessment Start: 07/16/18 15:05 Freq: Status: Active Protocol: Document 07/15/18 16:00 RCC (Rec: 07/16/18 17:15 RCC [email or web address]) Manual Assessments Soft Tissue Assessment Soft Tissue Mobility Assessment Tenderness to palpation: L supraspinatus, infraspinatus, B rhomboids, L UT and levator, L bicep tendon (long head), L anterior deltoid and pecs PT-OP-H Neuro Start: 07/16/18 15:05 Freq: Status: Active Protocol: Document 07/15/18 16:00 RCC (Rec: 07/16/18 17:15 RCC [email or web address]) Sensation Evaluation Gross Sensation Gross Sensation WNL Deep Tendon Reflex & Clonus Assessment Deep Tendon Reflex Bilateral Brachioradialis Deep Tendon Reflex 2+ Normal Bilateral Tricep Deep Tendon Reflex 2+ Normal Bilateral Bicep Deep Tendon Reflex 2+ Normal PT-OP-J Posture/Palpation/Skin Start: 07/16/18 15:05 Freq: Status: Active Protocol: Document 07/15/18 16:00 RCC (Rec: 07/16/18 17:15 RCC [email or web address]) Posture Evaluation Comments Posture Comments moderate forward head and rounded shoulders. L shoulder elevated with position of L shoulder adduction, IR and elbow flexion. PT-OP-K Range of Motion Start: 07/16/18 15:05 Freq: Status: Active Protocol: Document 07/29/18 09:46 RCC (Rec: 07/29/18 11:48 RCC [email or web address]) Shoulder Goniometric Range of Motion Shoulder ROM Limitations Comments T-bar ROM- flexion to 110 degrees, abduction to 75 degrees PT-OP-L Special Tests Start: 07/16/18 15:05 Freq: Status: Active Protocol: Document 07/15/18 16:00 RCC (Rec: 07/16/18 17:15 RCC [email or web address]) Special Tests Cervical Spine Special Tests Spurling's Test Test Results negative Foraminal Compression Test Results negative Shoulder Special Tests Yergason's Biceps Test Results positive L Speed's Biceps Test Results positive L Bansal Kelvin Impingement Test Results positive L Empty Can Test Results positive L Drop Arm Rotator Cuff Test Results positive L Belly Press Test Results negative Lift-Off Rotator Cuff Test Results negative Comments painful but able to do with L hand PT-OP-M Strength Start: 07/16/18 15:05 Freq: Status: Active Protocol: Document 07/15/18 16:00 RCC (Rec: 07/16/18 17:15 RCC [email or web address]) Shoulder Strength Shoulder Manual Muscle Testing Left Flexion 2 Poor Abduction (C5) 2 Poor External Rotation 3 Fair Internal Rotation 3 Fair Horizontal Abduction 3+ Fair+ Horizontal Adduction 3+ Fair+ Right Flexion 5 Normal Abduction (C5) 5 Normal External Rotation 5 Normal Internal Rotation 5 Normal Horizontal Abduction 5 Normal Horizontal Adduction 5 Normal Elbow/Forearm Strength Elbow and Forearm Manual Muscle Testing Right Flexion (C6) 3+ Fair+ Extension (C7) 4 Good Left Flexion (C6) 4+ Good+ Extension (C7) 4+ Good+ PT-OP-Q Treatments Start: 07/16/18 15:05 Freq: Status: Active Protocol: Document 07/29/18 09:46 RCC (Rec: 07/29/18 11:48 RCC [email or web address]) Therapeutic Exercises Supine Exercises shoulder abduction Supine Exercise Name T bar shoulder abduction Side left Reps/Minutes x10 Comments PT assisted ROM within pain- free range (not ready for HEP yet) 1 Supine Exercise Name supine manual ut stretch Side left Reps/Minutes 2x30 sec T-bar Supine Exercise Name shoulder flexion and ER/IR Side bilateral Reps/Minutes 10x3 each Sitting Exercises Scapular retraction Side bilateral Reps/Minutes 30x pulleys Sitting Exercise Name flexion and abduction Side left Reps/Minutes 15 x each Standing Exercises pec stretch Standing Exercise Name doorway pectoral stretch Side left Reps/Minutes 3x10 sec Comments VC, demonstration; added to HEP Manual Therapy Treatment Soft Tissue Mobilization 1 Body Location left upper trap, pec, and levator, Supraspinatus Mobilization Type Myofascial Release Rolling Trigger Point Release Intensity/Depth Superficial Body Position Supine PT-OP-R Modalities Start: 07/16/18 15:05 Freq: Status: Active Protocol: Document 07/29/18 09:46 RCC (Rec: 07/29/18 11:48 [facility] [email or web address]) Ultrasound Therapy Treatment left shoulder Treatment Duration (minutes) 8 Patient Position Supine Coupling Medium Ultrasound Gel Frequency Setting (mHz) 3 Mode Setting Continuous Comments UT, Supraspinatus, Lateral brachium PT-OP-T Assessment and Plan Start: 07/16/18 15:05 Freq: Status: Active Protocol: Document 07/29/18 09:46 RCC (Rec: 07/29/18 11:48 RCC [email or web address]) Physical Therapy Assessment Assessment Summary Assessment Pt's ROM with pulleys to 110 degrees with flexion and 75 degrees abduction of the L shoulder. She required manual assistance to tolerate and perform T-bar abduction of the L shoulder properly, and not yet ready for addition of this to her HEP. Pt with good tolerance to pectoral doorway stretch, added to HEP ( pectorals tight possibly due to guarded L shoulder positioning). Physical Therapy Plan Frequency and Duration Frequency of Treatment 2x/Week Duration of Treatment 12 weeks Plan of Care Start Date 07/15/18 Plan of Care End Date 10/07/18 Next Visit Focus/Plan Next Note Type Treatment Note Next Visit Plan gentle joint mobilizations inferior and posterior GH joint, scapular upward rotation mobilizations; cont to progress ROM as tolerated;
--- NOTE | 2018-08-03 11:39 | PT.OTN ---
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 Onset in April 2018 or May 2018, pt woke up one morning with shoulder pain on the L side. She felt like she may have slept on it wrong, but continued to be painful, along with weakness and worsening ROM. She denies any trauma to the L shoulder. She also denies any numbness or tingling. Pt is R hand dominant. Aggravating factors include: reaching behind her back and away from her body. The only relieving factor the pt has found is to not move her L hand or arm and always support it closer to her body. She has not found any medications to help and she has done ice with some assistance for short periods. Radiograph of L shoulder showed glenohumeral degenerative spurring and subchondral sclerosis, no calcifications in soft tissue. Radiograph also showed severe scoliosis. Pt has not had MRI yet. She does an exercises class weekly at the [facility] [facility], but is unable to participate in UE work due to her shoulder pain and limited motion. Prior Treatments and Tests radiograph (see above) Future Testing and Treatments Planned MRI of L shoulder (if PT fails ) Treatment Goals Patient/Caregiver Goals to be able to participate in [employer] strength and balance class, decrease pain Prior Functional Status Baseline Function- Recreation/Hobbies able to participate in [employer] balance and strength class without restrictions or pain Current Functional Impairments (Reported) Functional Limitations- Recreation/ unable to do UE work during Hobbies the [employer] strength and balance class. Personal Factors Other Personal Factors That May Effect hearing impairment (loss of Therapy/Recovery hearing but unable to afford hearing aids per pt), age- related visual problems, depression, pt reports tremors (on carbidopa- levadopa) PT-OP-C Subjective Start: 07/16/18 15:05 Freq: Status: Active Protocol: Document 08/03/18 09:00 GGD (Rec: 08/03/18 11:39 GGD [email or web address]) OP-PT Subjective Patient Comments Patient Comments Pt states her shoulder has been sore the last few days. PT-OP-E Functional Tests Start: 07/16/18 15:05 Freq: Status: Active Protocol: Document 07/15/18 16:00 RCC (Rec: 07/16/18 17:15 RCC [email or web address]) Functional Tests Apley's Scratch Test Action 1: The subject is instructed to touch the opposite shoulder with his/her hand. This motion checks Glenohumeral adduction, internal rotation , horizontal adduction and scapular protraction Action 2: The subject is instructed to place his/her arm overhead and reach behind the neck to touch his/her upper back. This motion checks Glenohumeral abduction, external rotation and scapular upward rotation and elevation. Action 3: The subject puts his/her hand on the lower back and reaches upward as far as possible. This motion checks glenohumeral adduction, internal rotation and scapular retraction with downward rotation Action 1- Left unable Action 1- Right able to perform Action 2- Left top of head Action 2- Right occiput Action 3- Left L5 Action 3- Right T6 PT-OP-F Manual Assessment Start: 07/16/18 15:05 Freq: Status: Active Protocol: Document 07/15/18 16:00 RCC (Rec: 07/16/18 17:15 RCC [email or web address]) Manual Assessments Soft Tissue Assessment Soft Tissue Mobility Assessment Tenderness to palpation: L supraspinatus, infraspinatus, B rhomboids, L UT and levator, L bicep tendon (long head), L anterior deltoid and pecs PT-OP-H Neuro Start: 07/16/18 15:05 Freq: Status: Active Protocol: Document 07/15/18 16:00 RCC (Rec: 07/16/18 17:15 RCC [email or web address]) Sensation Evaluation Gross Sensation Gross Sensation WNL Deep Tendon Reflex & Clonus Assessment Deep Tendon Reflex Bilateral Brachioradialis Deep Tendon Reflex 2+ Normal Bilateral Tricep Deep Tendon Reflex 2+ Normal Bilateral Bicep Deep Tendon Reflex 2+ Normal PT-OP-J Posture/Palpation/Skin Start: 07/16/18 15:05 Freq: Status: Active Protocol: Document 07/15/18 16:00 RCC (Rec: 07/16/18 17:15 RCC [email or web address]) Posture Evaluation Comments Posture Comments moderate forward head and rounded shoulders. L shoulder elevated with position of L shoulder adduction, IR and elbow flexion. PT-OP-K Range of Motion Start: 07/16/18 15:05 Freq: Status: Active Protocol: Document 07/29/18 09:46 RCC (Rec: 07/29/18 11:48 RCC [email or web address]) Shoulder Goniometric Range of Motion Shoulder ROM Limitations Comments T-bar ROM- flexion to 110 degrees, abduction to 75 degrees PT-OP-L Special Tests Start: 07/16/18 15:05 Freq: Status: Active Protocol: Document 07/15/18 16:00 RCC (Rec: 07/16/18 17:15 RCC [email or web address]) Special Tests Cervical Spine Special Tests Spurling's Test Test Results negative Foraminal Compression Test Results negative Shoulder Special Tests Yergason's Biceps Test Results positive L Speed's Biceps Test Results positive L Bansal Kelvin Impingement Test Results positive L Empty Can Test Results positive L Drop Arm Rotator Cuff Test Results positive L Belly Press Test Results negative Lift-Off Rotator Cuff Test Results negative Comments painful but able to do with L hand PT-OP-M Strength Start: 07/16/18 15:05 Freq: Status: Active Protocol: Document 07/15/18 16:00 RCC (Rec: 07/16/18 17:15 RCC [email or web address]) Shoulder Strength Shoulder Manual Muscle Testing Left Flexion 2 Poor Abduction (C5) 2 Poor External Rotation 3 Fair Internal Rotation 3 Fair Horizontal Abduction 3+ Fair+ Horizontal Adduction 3+ Fair+ Right Flexion 5 Normal Abduction (C5) 5 Normal External Rotation 5 Normal Internal Rotation 5 Normal Horizontal Abduction 5 Normal Horizontal Adduction 5 Normal Elbow/Forearm Strength Elbow and Forearm Manual Muscle Testing Right Flexion (C6) 3+ Fair+ Extension (C7) 4 Good Left Flexion (C6) 4+ Good+ Extension (C7) 4+ Good+ PT-OP-Q Treatments Start: 07/16/18 15:05 Freq: Status: Active Protocol: Document 08/03/18 09:00 GGD (Rec: 08/03/18 11:39 GGD [email or web address]) Therapeutic Exercises Supine Exercises shoulder abduction Supine Exercise Name T bar shoulder abduction Side left Reps/Minutes x10 Comments PT assisted ROM within pain- free range (not ready for HEP yet) 1 Supine Exercise Name supine manual ut stretch Side left Reps/Minutes 2x30 sec T-bar Supine Exercise Name shoulder flexion and ER/IR Side bilateral Reps/Minutes 10x3 each Sitting Exercises Scapular retraction Side bilateral Reps/Minutes 30x pulleys Sitting Exercise Name flexion and abduction Side left Reps/Minutes 15 x each Standing Exercises pec stretch Standing Exercise Name doorway pectoral stretch Side left Reps/Minutes 3x10 sec Comments VC, demonstration; added to HEP Manual Therapy Treatment Soft Tissue Mobilization 1 Body Location left upper trap, pec, and levator, Supraspinatus Mobilization Type Myofascial Release Rolling Trigger Point Release Intensity/Depth Superficial Body Position Supine Joint Mobilizations 1 Joint GH joint Direction inf/ post Grade II Body Position Supine PT-OP-R Modalities Start: 07/16/18 15:05 Freq: Status: Active Protocol: Document 08/03/18 09:00 GGD (Rec: 08/03/18 11:39 GGD [email or web address]) Hot Pack/Cold Pack Treatment Cold Pack Location L shoulder Patient Position Hooklying Treatment Duration (minutes) 10 Patient Tolerance Good Ultrasound Therapy Treatment left shoulder Treatment Duration (minutes) 8 Patient Position Supine Coupling Medium Ultrasound Gel Frequency Setting (mHz) 3 Mode Setting Continuous Comments UT, Supraspinatus, Lateral brachium PT-OP-T Assessment and Plan Start: 07/16/18 15:05 Freq: Status: Active Protocol: Document 08/03/18 09:00 GGD (Rec: 08/03/18 11:39 GGD [email or web address]) Physical Therapy Assessment Assessment Summary Assessment Pt had increase guarding and muscle tension today. She had improved ROM with AAROM activities after manual therapy. Physical Therapy Plan Frequency and Duration Frequency of Treatment 2x/Week Duration of Treatment 12 weeks Plan of Care Start Date 07/15/18 Plan of Care End Date 10/07/18 Next Visit Focus/Plan Next Note Type Treatment Note Next Visit Plan gentle joint mobilizations inferior and posterior GH joint, scapular upward rotation mobilizations; cont to progress ROM as tolerated;
--- NOTE | 2018-08-05 10:30 | PT.OTN ---
Current Diagnoses Pain in left shoulder (08/05/18) Physical Therapy Treatment Note PT-OP-A Visit Information Start: 07/16/18 15:05 Freq: Status: Active Protocol: Document 08/05/18 10:23 SA (Rec: 08/05/18 10:30 SA [email or web address]) Out-Patient Physical Therapy Visit Information Visit Information Visit Start Time 09:45 Visit Stop Time 10:33 Total Visit Minutes 48 Visit Number 6 Number of CUSTOMER SERVICE SUPERVISOR Visits 2 PT-OP-B Current Condition Start: 07/16/18 15:05 Freq: Status: Active Protocol: Document 07/15/18 16:00 RCC (Rec: 07/16/18 17:15 RCC [email or web address]) Current Condition History of Current Condition Onset Date April 2018 or May 2018 Current Complaints L shoulder pain, weakness History of Current Condition Pt is a 78 y/o female presenting to physical therapy with a c/o L shoulder pain. Onset in April 2018 or May 2018, pt woke up one morning with shoulder pain on the L side. She felt like she may have slept on it wrong, but continued to be painful, along with weakness and worsening ROM. She denies any trauma to the L shoulder. She also denies any numbness or tingling. Pt is R hand dominant. Aggravating factors include: reaching behind her back and away from her body. The only relieving factor the pt has found is to not move her L hand or arm and always support it closer to her body. She has not found any medications to help and she has done ice with some assistance for short periods. Radiograph of L shoulder showed glenohumeral degenerative spurring and subchondral sclerosis, no calcifications in soft tissue. Radiograph also showed severe scoliosis. Pt has not had MRI yet. She does an exercises class weekly at the [facility], but is unable to participate in UE work due to her shoulder pain and limited motion. Prior Treatments and Tests radiograph (see above) Future Testing and Treatments Planned MRI of L shoulder (if PT fails ) Treatment Goals Patient/Caregiver Goals to be able to participate in [employer] strength and balance class, decrease pain Prior Functional Status Baseline Function- Recreation/Hobbies able to participate in [employer] balance and strength class without restrictions or pain Current Functional Impairments (Reported) Functional Limitations- Recreation/ unable to do UE work during Hobbies the [facility] strength and balance class. Personal Factors Other Personal Factors That May Effect hearing impairment (loss of Therapy/Recovery hearing but unable to afford hearing aids per pt), age- related visual problems, depression, pt reports tremors (on carbidopa- levadopa) PT-OP-C Subjective Start: 07/16/18 15:05 Freq: Status: Active Protocol: Document 08/05/18 10:23 SA (Rec: 08/05/18 10:30 SA [email or web address]) OP-PT Subjective Patient Comments Patient Comments Pt reports feeling sore today, doing HEP daily and classes at [facility] 3x/week but does not do UE exercises in class. PT-OP-E Functional Tests Start: 07/16/18 15:05 Freq: Status: Active Protocol: Document 07/15/18 16:00 RCC (Rec: 07/16/18 17:15 RCC [email or web address]) Functional Tests Apley's Scratch Test Action 1: The subject is instructed to touch the opposite shoulder with his/her hand. This motion checks Glenohumeral adduction, internal rotation , horizontal adduction and scapular protraction Action 2: The subject is instructed to place his/her arm overhead and reach behind the neck to touch his/her upper back. This motion checks Glenohumeral abduction, external rotation and scapular upward rotation and elevation. Action 3: The subject puts his/her hand on the lower back and reaches upward as far as possible. This motion checks glenohumeral adduction, internal rotation and scapular retraction with downward rotation Action 1- Left unable Action 1- Right able to perform Action 2- Left top of head Action 2- Right occiput Action 3- Left L5 Action 3- Right T6 PT-OP-F Manual Assessment Start: 07/16/18 15:05 Freq: Status: Active Protocol: Document 07/15/18 16:00 RCC (Rec: 07/16/18 17:15 RCC [email or web address]) Manual Assessments Soft Tissue Assessment Soft Tissue Mobility Assessment Tenderness to palpation: L supraspinatus, infraspinatus, B rhomboids, L UT and levator, L bicep tendon (long head), L anterior deltoid and pecs PT-OP-H Neuro Start: 07/16/18 15:05 Freq: Status: Active Protocol: Document 07/15/18 16:00 RCC (Rec: 07/16/18 17:15 RCC [email or web address]) Sensation Evaluation Gross Sensation Gross Sensation WNL Deep Tendon Reflex & Clonus Assessment Deep Tendon Reflex Bilateral Brachioradialis Deep Tendon Reflex 2+ Normal Bilateral Tricep Deep Tendon Reflex 2+ Normal Bilateral Bicep Deep Tendon Reflex 2+ Normal PT-OP-J Posture/Palpation/Skin Start: 07/16/18 15:05 Freq: Status: Active Protocol: Document 07/15/18 16:00 RCC (Rec: 07/16/18 17:15 RCC [email or web address]) Posture Evaluation Comments Posture Comments moderate forward head and rounded shoulders. L shoulder elevated with position of L shoulder adduction, IR and elbow flexion. PT-OP-K Range of Motion Start: 07/16/18 15:05 Freq: Status: Active Protocol: Document 07/29/18 09:46 RCC (Rec: 07/29/18 11:48 RCC [email or web address]) Shoulder Goniometric Range of Motion Shoulder ROM Limitations Comments T-bar ROM- flexion to 110 degrees, abduction to 75 degrees PT-OP-L Special Tests Start: 07/16/18 15:05 Freq: Status: Active Protocol: Document 07/15/18 16:00 RCC (Rec: 07/16/18 17:15 RCC [email or web address]) Special Tests Cervical Spine Special Tests Spurling's Test Test Results negative Foraminal Compression Test Results negative Shoulder Special Tests Yergason's Biceps Test Results positive L Speed's Biceps Test Results positive L Bansal Kelvin Impingement Test Results positive L Empty Can Test Results positive L Drop Arm Rotator Cuff Test Results positive L Belly Press Test Results negative Lift-Off Rotator Cuff Test Results negative Comments painful but able to do with L hand PT-OP-M Strength Start: 07/16/18 15:05 Freq: Status: Active Protocol: Document 07/15/18 16:00 RCC (Rec: 07/16/18 17:15 RCC [email or web address]) Shoulder Strength Shoulder Manual Muscle Testing Left Flexion 2 Poor Abduction (C5) 2 Poor External Rotation 3 Fair Internal Rotation 3 Fair Horizontal Abduction 3+ Fair+ Horizontal Adduction 3+ Fair+ Right Flexion 5 Normal Abduction (C5) 5 Normal External Rotation 5 Normal Internal Rotation 5 Normal Horizontal Abduction 5 Normal Horizontal Adduction 5 Normal Elbow/Forearm Strength Elbow and Forearm Manual Muscle Testing Right Flexion (C6) 3+ Fair+ Extension (C7) 4 Good Left Flexion (C6) 4+ Good+ Extension (C7) 4+ Good+ PT-OP-Q Treatments Start: 07/16/18 15:05 Freq: Status: Active Protocol: Document 08/05/18 10:23 SA (Rec: 08/05/18 10:30 [email or web address]) Therapeutic Exercises Supine Exercises shoulder abduction Supine Exercise Name T bar shoulder abduction Side left Reps/Minutes 12x Comments PT assisted ROM within pain- free range (not ready for HEP yet) Shoulder ER/IR Supine Exercise Name with wand Reps/Minutes 15x 1 Supine Exercise Name supine manual ut stretch Side left Reps/Minutes 2x30 sec T-bar Supine Exercise Name shoulder flexion and ER/IR Side bilateral Reps/Minutes 10x3 each Sitting Exercises Scapular retraction Side bilateral Reps/Minutes 30x pulleys Sitting Exercise Name flexion and abduction Side left Reps/Minutes 15 x each Standing Exercises pec stretch Standing Exercise Name doorway pectoral stretch Side left Reps/Minutes 3x10 sec Comments VC, demonstration; added to HEP Manual Therapy Treatment Soft Tissue Mobilization 1 Body Location left upper trap, pec, and levator, Supraspinatus Mobilization Type Myofascial Release Rolling Trigger Point Release Intensity/Depth Superficial Body Position Supine Joint Mobilizations 1 Joint GH joint Direction inf/ post Grade II Body Position Supine PT-OP-R Modalities Start: 07/16/18 15:05 Freq: Status: Active Protocol: Document 08/05/18 10:23 (Rec: 08/05/18 10:30 [email or web address]) Hot Pack/Cold Pack Treatment Cold Pack Location L shoulder Patient Position Hooklying Treatment Duration (minutes) 10 Patient Tolerance Good Ultrasound Therapy Treatment left shoulder Treatment Duration (minutes) 8 Patient Position Supine Coupling Medium Ultrasound Gel Frequency Setting (mHz) 3 Mode Setting Continuous Comments UT, Supraspinatus, Lateral brachium PT-OP-T Assessment and Plan Start: 07/16/18 15:05 Freq: Status: Active Protocol: Document 08/05/18 10:23 (Rec: 08/05/18 10:30 [email or web address]) Physical Therapy Assessment Assessment Summary Assessment Reviewed HEP for correct form, changed doorway stretch to arm low on doorway to see if this improves tolerance. Pt with continued UT and Pec tightness. Physical Therapy Plan Next Visit Focus/Plan Next Note Type Treatment Note Next Visit Plan gentle joint mobilizations inferior and posterior GH joint, scapular upward rotation mobilizations; cont to progress ROM as tolerated;
--- NOTE | 2018-08-12 13:22 | PT.OTN ---
Current Diagnoses Pain in left shoulder (08/12/18) Physical Therapy Treatment Note PT-OP-A Visit Information Start: 07/16/18 15:05 Freq: Status: Active Protocol: Document 08/12/18 13:13 SA (Rec: 08/12/18 13:22 SA [email or web address]) Out-Patient Physical Therapy Visit Information Visit Information Visit Type Treatment Note Visit Start Time 09:45 Visit Stop Time 10:30 Total Visit Minutes 45 Visit Number 8 Number of BEATER OPERATOR Visits 3 PT-OP-B Current Condition Start: 07/16/18 15:05 Freq: Status: Active Protocol: Document 07/15/18 16:00 RCC (Rec: 07/16/18 17:15 RCC [email or web address]) Current Condition History of Current Condition Onset Date April 2018 or May 2018 Current Complaints L shoulder pain, weakness History of Current Condition Pt is a 78 y/o female presenting to physical therapy with a c/o L shoulder pain. Onset in April 2018 or May 2018, pt woke up one morning with shoulder pain on the L side. She felt like she may have slept on it wrong, but continued to be painful, along with weakness and worsening ROM. She denies any trauma to the L shoulder. She also denies any numbness or tingling. Pt is R hand dominant. Aggravating factors include: reaching behind her back and away from her body. The only relieving factor the pt has found is to not move her L hand or arm and always support it closer to her body. She has not found any medications to help and she has done ice with some assistance for short periods. Radiograph of L shoulder showed glenohumeral degenerative spurring and subchondral sclerosis, no calcifications in soft tissue. Radiograph also showed severe scoliosis. Pt has not had MRI yet. She does an exercises class weekly at the [employer], but is unable to participate in UE work due to her shoulder pain and limited motion. Prior Treatments and Tests radiograph (see above) Future Testing and Treatments Planned MRI of L shoulder (if PT fails ) Treatment Goals Patient/Caregiver Goals to be able to participate in [employer] strength and balance class, decrease pain Prior Functional Status Baseline Function- Recreation/Hobbies able to participate in [employer] balance and strength class without restrictions or pain Current Functional Impairments (Reported) Functional Limitations- Recreation/ unable to do UE work during Hobbies the [employer] strength and balance class. Personal Factors Other Personal Factors That May Effect hearing impairment (loss of Therapy/Recovery hearing but unable to afford hearing aids per pt), age- related visual problems, depression, pt reports tremors (on carbidopa- levadopa) PT-OP-C Subjective Start: 07/16/18 15:05 Freq: Status: Active Protocol: Document 08/12/18 13:13 SA (Rec: 08/12/18 13:22 SA [email or web address]) OP-PT Subjective Patient Comments Patient Comments Pt reports her shoulder feels a little better but is still sore. PT-OP-E Functional Tests Start: 07/16/18 15:05 Freq: Status: Active Protocol: Document 07/15/18 16:00 RCC (Rec: 07/16/18 17:15 RCC [email or web address]) Functional Tests Apley's Scratch Test Action 1: The subject is instructed to touch the opposite shoulder with his/her hand. This motion checks Glenohumeral adduction, internal rotation , horizontal adduction and scapular protraction Action 2: The subject is instructed to place his/her arm overhead and reach behind the neck to touch his/her upper back. This motion checks Glenohumeral abduction, external rotation and scapular upward rotation and elevation. Action 3: The subject puts his/her hand on the lower back and reaches upward as far as possible. This motion checks glenohumeral adduction, internal rotation and scapular retraction with downward rotation Action 1- Left unable Action 1- Right able to perform Action 2- Left top of head Action 2- Right occiput Action 3- Left L5 Action 3- Right T6 PT-OP-F Manual Assessment Start: 07/16/18 15:05 Freq: Status: Active Protocol: Document 07/15/18 16:00 RCC (Rec: 07/16/18 17:15 RCC [email or web address]) Manual Assessments Soft Tissue Assessment Soft Tissue Mobility Assessment Tenderness to palpation: L supraspinatus, infraspinatus, B rhomboids, L UT and levator, L bicep tendon (long head), L anterior deltoid and pecs PT-OP-H Neuro Start: 07/16/18 15:05 Freq: Status: Active Protocol: Document 07/15/18 16:00 RCC (Rec: 07/16/18 17:15 RCC [email or web address]) Sensation Evaluation Gross Sensation Gross Sensation WNL Deep Tendon Reflex & Clonus Assessment Deep Tendon Reflex Bilateral Brachioradialis Deep Tendon Reflex 2+ Normal Bilateral Tricep Deep Tendon Reflex 2+ Normal Bilateral Bicep Deep Tendon Reflex 2+ Normal PT-OP-J Posture/Palpation/Skin Start: 07/16/18 15:05 Freq: Status: Active Protocol: Document 07/15/18 16:00 RCC (Rec: 07/16/18 17:15 RCC [email or web address]) Posture Evaluation Comments Posture Comments moderate forward head and rounded shoulders. L shoulder elevated with position of L shoulder adduction, IR and elbow flexion. PT-OP-K Range of Motion Start: 07/16/18 15:05 Freq: Status: Active Protocol: Document 07/29/18 09:46 RCC (Rec: 07/29/18 11:48 RCC [email or web address]) Shoulder Goniometric Range of Motion Shoulder ROM Limitations Comments T-bar ROM- flexion to 110 degrees, abduction to 75 degrees PT-OP-L Special Tests Start: 07/16/18 15:05 Freq: Status: Active Protocol: Document 07/15/18 16:00 RCC (Rec: 07/16/18 17:15 RCC [email or web address]) Special Tests Cervical Spine Special Tests Spurling's Test Test Results negative Foraminal Compression Test Results negative Shoulder Special Tests Yergason's Biceps Test Results positive L Speed's Biceps Test Results positive L Bansal Kelvin Impingement Test Results positive L Empty Can Test Results positive L Drop Arm Rotator Cuff Test Results positive L Belly Press Test Results negative Lift-Off Rotator Cuff Test Results negative Comments painful but able to do with L hand PT-OP-M Strength Start: 07/16/18 15:05 Freq: Status: Active Protocol: Document 07/15/18 16:00 RCC (Rec: 07/16/18 17:15 RCC [email or web address]) Shoulder Strength Shoulder Manual Muscle Testing Left Flexion 2 Poor Abduction (C5) 2 Poor External Rotation 3 Fair Internal Rotation 3 Fair Horizontal Abduction 3+ Fair+ Horizontal Adduction 3+ Fair+ Right Flexion 5 Normal Abduction (C5) 5 Normal External Rotation 5 Normal Internal Rotation 5 Normal Horizontal Abduction 5 Normal Horizontal Adduction 5 Normal Elbow/Forearm Strength Elbow and Forearm Manual Muscle Testing Right Flexion (C6) 3+ Fair+ Extension (C7) 4 Good Left Flexion (C6) 4+ Good+ Extension (C7) 4+ Good+ PT-OP-Q Treatments Start: 07/16/18 15:05 Freq: Status: Active Protocol: Document 08/12/18 13:13 SA (Rec: 08/12/18 13:22 [email or web address]) Therapeutic Exercises Supine Exercises shoulder abduction Supine Exercise Name T bar shoulder abduction Side left Reps/Minutes 12x Comments PT assisted ROM within pain- free range (not ready for HEP yet) Shoulder ER/IR Supine Exercise Name with wand Reps/Minutes 15x 1 Supine Exercise Name supine manual ut stretch Side left Reps/Minutes 2x30 sec scapular retraction/shoulder extension Side bilateral Reps/Minutes 10x Comments supine Sitting Exercises pulleys Sitting Exercise Name flexion and abduction Side left Reps/Minutes 15 x each Manual Therapy Treatment Soft Tissue Mobilization 1 Body Location left upper trap, pec, and levator, Supraspinatus Mobilization Type Myofascial Release Rolling Trigger Point Release Intensity/Depth Superficial Body Position Supine Joint Mobilizations 1 Joint GH joint Direction inf/ post Grade II Body Position Supine PT-OP-R Modalities Start: 07/16/18 15:05 Freq: Status: Active Protocol: Document 08/12/18 13:13 SA (Rec: 08/12/18 13:22 [email or web address]) Ultrasound Therapy Treatment left shoulder Treatment Duration (minutes) 8 Patient Position Supine Coupling Medium Ultrasound Gel Frequency Setting (mHz) 3 Mode Setting Continuous Comments UT, Supraspinatus, Lateral brachium PT-OP-T Assessment and Plan Start: 07/16/18 15:05 Freq: Status: Active Protocol: Document 08/12/18 13:13 (Rec: 08/12/18 13:22 [email or web address]) Physical Therapy Assessment Assessment Summary Assessment Added UT stretch and scapular tetraction to HEP. Pt tolerting manual therapy and exercise progressions well. Physical Therapy Plan Next Visit Focus/Plan Next Note Type Treatment Note Next Visit Plan Assess response to HEP additions, progress ther ex as tolerated and continue with manual therapy.
--- NOTE | 2018-08-17 10:31 | PT.OTN ---
Current Diagnoses Pain in left shoulder (08/17/18) Physical Therapy Treatment Note PT-OP-A Visit Information Start: 07/16/18 15:05 Freq: Status: Active Protocol: Document 08/17/18 10:23 SA (Rec: 08/17/18 10:31 SA [email or web address]) Out-Patient Physical Therapy Visit Information Visit Information Visit Type Treatment Note Visit Start Time 09:45 Visit Stop Time 10:31 Total Visit Minutes 46 Visit Number 9 Number of MANAGER CASINO Visits 4 PT-OP-B Current Condition Start: 07/16/18 15:05 Freq: Status: Active Protocol: Document 07/15/18 16:00 RCC (Rec: 07/16/18 17:15 RCC [email or web address]) Current Condition History of Current Condition Onset Date April 2018 or May 2018 Current Complaints L shoulder pain, weakness History of Current Condition Pt is a 78 y/o female presenting to physical therapy with a c/o L shoulder pain. Onset in April 2018 or May 2018, pt woke up one morning with shoulder pain on the L side. She felt like she may have slept on it wrong, but continued to be painful, along with weakness and worsening ROM. She denies any trauma to the L shoulder. She also denies any numbness or tingling. Pt is R hand dominant. Aggravating factors include: reaching behind her back and away from her body. The only relieving factor the pt has found is to not move her L hand or arm and always support it closer to her body. She has not found any medications to help and she has done ice with some assistance for short periods. Radiograph of L shoulder showed glenohumeral degenerative spurring and subchondral sclerosis, no calcifications in soft tissue. Radiograph also showed severe scoliosis. Pt has not had MRI yet. She does an exercises class weekly at the [employer], but is unable to participate in UE work due to her shoulder pain and limited motion. Prior Treatments and Tests radiograph (see above) Future Testing and Treatments Planned MRI of L shoulder (if PT fails ) Treatment Goals Patient/Caregiver Goals to be able to participate in [employer] strength and balance class, decrease pain Prior Functional Status Baseline Function- Recreation/Hobbies able to participate in [employer] balance and strength class without restrictions or pain Current Functional Impairments (Reported) Functional Limitations- Recreation/ unable to do UE work during Hobbies the [employer] strength and balance class. Personal Factors Other Personal Factors That May Effect hearing impairment (loss of Therapy/Recovery hearing but unable to afford hearing aids per pt), age- related visual problems, depression, pt reports tremors (on carbidopa- levadopa) PT-OP-C Subjective Start: 07/16/18 15:05 Freq: Status: Active Protocol: Document 08/17/18 10:23 SA (Rec: 08/17/18 10:31 SA [email or web address]) OP-PT Subjective Patient Comments Patient Comments Pt reports increased shoulder pain this morning, no change in activites and needs clarification on UT stretch for HEP. PT-OP-E Functional Tests Start: 07/16/18 15:05 Freq: Status: Active Protocol: Document 07/15/18 16:00 RCC (Rec: 07/16/18 17:15 RCC [email or web address]) Functional Tests Apley's Scratch Test Action 1: The subject is instructed to touch the opposite shoulder with his/her hand. This motion checks Glenohumeral adduction, internal rotation , horizontal adduction and scapular protraction Action 2: The subject is instructed to place his/her arm overhead and reach behind the neck to touch his/her upper back. This motion checks Glenohumeral abduction, external rotation and scapular upward rotation and elevation. Action 3: The subject puts his/her hand on the lower back and reaches upward as far as possible. This motion checks glenohumeral adduction, internal rotation and scapular retraction with downward rotation Action 1- Left unable Action 1- Right able to perform Action 2- Left top of head Action 2- Right occiput Action 3- Left L5 Action 3- Right T6 PT-OP-F Manual Assessment Start: 07/16/18 15:05 Freq: Status: Active Protocol: Document 07/15/18 16:00 RCC (Rec: 07/16/18 17:15 RCC [email or web address]) Manual Assessments Soft Tissue Assessment Soft Tissue Mobility Assessment Tenderness to palpation: L supraspinatus, infraspinatus, B rhomboids, L UT and levator, L bicep tendon (long head), L anterior deltoid and pecs PT-OP-H Neuro Start: 07/16/18 15:05 Freq: Status: Active Protocol: Document 07/15/18 16:00 RCC (Rec: 07/16/18 17:15 RCC [email or web address]) Sensation Evaluation Gross Sensation Gross Sensation WNL Deep Tendon Reflex & Clonus Assessment Deep Tendon Reflex Bilateral Brachioradialis Deep Tendon Reflex 2+ Normal Bilateral Tricep Deep Tendon Reflex 2+ Normal Bilateral Bicep Deep Tendon Reflex 2+ Normal PT-OP-J Posture/Palpation/Skin Start: 07/16/18 15:05 Freq: Status: Active Protocol: Document 07/15/18 16:00 RCC (Rec: 07/16/18 17:15 RCC [email or web address]) Posture Evaluation Comments Posture Comments moderate forward head and rounded shoulders. L shoulder elevated with position of L shoulder adduction, IR and elbow flexion. PT-OP-K Range of Motion Start: 07/16/18 15:05 Freq: Status: Active Protocol: Document 07/29/18 09:46 RCC (Rec: 07/29/18 11:48 RCC [email or web address]) Shoulder Goniometric Range of Motion Shoulder ROM Limitations Comments T-bar ROM- flexion to 110 degrees, abduction to 75 degrees PT-OP-L Special Tests Start: 07/16/18 15:05 Freq: Status: Active Protocol: Document 07/15/18 16:00 RCC (Rec: 07/16/18 17:15 RCC [email or web address]) Special Tests Cervical Spine Special Tests Spurling's Test Test Results negative Foraminal Compression Test Results negative Shoulder Special Tests Yergason's Biceps Test Results positive L Speed's Biceps Test Results positive L Bansal Kelvin Impingement Test Results positive L Empty Can Test Results positive L Drop Arm Rotator Cuff Test Results positive L Belly Press Test Results negative Lift-Off Rotator Cuff Test Results negative Comments painful but able to do with L hand PT-OP-M Strength Start: 07/16/18 15:05 Freq: Status: Active Protocol: Document 07/15/18 16:00 RCC (Rec: 07/16/18 17:15 RCC [email or web address]) Shoulder Strength Shoulder Manual Muscle Testing Left Flexion 2 Poor Abduction (C5) 2 Poor External Rotation 3 Fair Internal Rotation 3 Fair Horizontal Abduction 3+ Fair+ Horizontal Adduction 3+ Fair+ Right Flexion 5 Normal Abduction (C5) 5 Normal External Rotation 5 Normal Internal Rotation 5 Normal Horizontal Abduction 5 Normal Horizontal Adduction 5 Normal Elbow/Forearm Strength Elbow and Forearm Manual Muscle Testing Right Flexion (C6) 3+ Fair+ Extension (C7) 4 Good Left Flexion (C6) 4+ Good+ Extension (C7) 4+ Good+ PT-OP-Q Treatments Start: 07/16/18 15:05 Freq: Status: Active Protocol: Document 08/17/18 10:23 SA (Rec: 08/17/18 10:31 [email or web address]) Therapeutic Exercises Supine Exercises shoulder abduction Supine Exercise Name T bar shoulder abduction Side left Reps/Minutes 12x Comments PT assisted ROM within pain- free range (not ready for HEP yet) Shoulder ER/IR Supine Exercise Name with wand Reps/Minutes 15x scapular retraction/shoulder extension Side bilateral Reps/Minutes 10 x 5 Comments supine Standing Exercises pec stretch Standing Exercise Name manual Side bilateral Reps/Minutes 30 x 3 Manual Therapy Treatment Soft Tissue Mobilization 1 Body Location left upper trap, pec, and levator, Supraspinatus Mobilization Type Myofascial Release Rolling Trigger Point Release Intensity/Depth Superficial Body Position Supine Comments Manual UT stretching. Joint Mobilizations 1 Joint GH joint Direction inf/ post Grade II Body Position Supine PT-OP-R Modalities Start: 07/16/18 15:05 Freq: Status: Active Protocol: Document 08/17/18 10:23 SA (Rec: 08/17/18 10:31 [email or web address]) Hot Pack/Cold Pack Treatment Cold Pack Location L shoulder Patient Position Hooklying Treatment Duration (minutes) 10 Patient Tolerance Good PT-OP-T Assessment and Plan Start: 07/16/18 15:05 Freq: Status: Active Protocol: Document 08/17/18 10:23 SA (Rec: 08/17/18 10:31 [email or web address]) Physical Therapy Assessment Assessment Summary Assessment Pt able to complete UT stretching and scap retraction better with larger print HEP and visual review, exercises not triggering sx, tolerating manual therapy well. Physical Therapy Plan Next Visit Focus/Plan Next Note Type Treatment Note Next Visit Plan Assess response to HEP additions, progress ther ex as tolerated and continue with manual therapy.
--- NOTE | 2018-08-19 09:45 | PT.OTN ---
Current Diagnoses Pain in left shoulder (08/19/18) Physical Therapy Treatment Note PT-OP-A Visit Information Start: 07/16/18 15:05 Freq: Status: Active Protocol: Document 08/19/18 09:45 RCC (Rec: 08/19/18 18:25 RCC [email or web address]) Out-Patient Physical Therapy Visit Information Visit Information Visit Type Treatment Note Visit Start Time 09:45 Visit Stop Time 10:29 Total Visit Minutes 44 Visit Number 10 Number of FRONT DESK SPECIALIST Visits 0 Evaluation Information Evaluation Date 07/15/18 Precautions Precautions pt with impaired vision, guide her when walking around in clinic PT-OP-B Current Condition Start: 07/16/18 15:05 Freq: Status: Active Protocol: Document 07/15/18 16:00 RCC (Rec: 07/16/18 17:15 RCC [email or web address]) Current Condition History of Current Condition Onset Date April 2018 or May 2018 Current Complaints L shoulder pain, weakness History of Current Condition Pt is a 78 y/o female presenting to physical therapy with a c/o L shoulder pain. Onset in April 2018 or May 2018, pt woke up one morning with shoulder pain on the L side. She felt like she may have slept on it wrong, but continued to be painful, along with weakness and worsening ROM. She denies any trauma to the L shoulder. She also denies any numbness or tingling. Pt is R hand dominant. Aggravating factors include: reaching behind her back and away from her body. The only relieving factor the pt has found is to not move her L hand or arm and always support it closer to her body. She has not found any medications to help and she has done ice with some assistance for short periods. Radiograph of L shoulder showed glenohumeral degenerative spurring and subchondral sclerosis, no calcifications in soft tissue. Radiograph also showed severe scoliosis. Pt has not had MRI yet. She does an exercises class weekly at the [employer], but is unable to participate in UE work due to her shoulder pain and limited motion. Prior Treatments and Tests radiograph (see above) Future Testing and Treatments Planned MRI of L shoulder (if PT fails ) Treatment Goals Patient/Caregiver Goals to be able to participate in senior center strength and balance class, decrease pain Prior Functional Status Baseline Function- Recreation/Hobbies able to participate in [employer] balance and strength class without restrictions or pain Current Functional Impairments (Reported) Functional Limitations- Recreation/ unable to do UE work during Hobbies the [facility] strength and balance class. Personal Factors Other Personal Factors That May Effect hearing impairment (loss of Therapy/Recovery hearing but unable to afford hearing aids per pt), age- related visual problems, depression, pt reports tremors (on carbidopa- levadopa) PT-OP-C Subjective Start: 07/16/18 15:05 Freq: Status: Active Protocol: Document 08/19/18 09:45 RCC (Rec: 08/19/18 18:25 RCC [email or web address]) OP-PT Subjective Patient Comments Patient Comments Pt states that her exercise class may have exacerbated her shoulder pain, although prior to last week she was really noticing improvements. OP-PT Pain Assessment Location L shoulder Intensity 4 Scale Used Numeric (1 - 10) PT-OP-E Functional Tests Start: 07/16/18 15:05 Freq: Status: Active Protocol: Document 07/15/18 16:00 RCC (Rec: 07/16/18 17:15 RCC [email or web address]) Functional Tests Apley's Scratch Test Action 1: The subject is instructed to touch the opposite shoulder with his/her hand. This motion checks Glenohumeral adduction, internal rotation , horizontal adduction and scapular protraction Action 2: The subject is instructed to place his/her arm overhead and reach behind the neck to touch his/her upper back. This motion checks Glenohumeral abduction, external rotation and scapular upward rotation and elevation. Action 3: The subject puts his/her hand on the lower back and reaches upward as far as possible. This motion checks glenohumeral adduction, internal rotation and scapular retraction with downward rotation Action 1- Left unable Action 1- Right able to perform Action 2- Left top of head Action 2- Right occiput Action 3- Left L5 Action 3- Right T6 PT-OP-F Manual Assessment Start: 07/16/18 15:05 Freq: Status: Active Protocol: Document 07/15/18 16:00 RCC (Rec: 07/16/18 17:15 RCC [email or web address]) Manual Assessments Soft Tissue Assessment Soft Tissue Mobility Assessment Tenderness to palpation: L supraspinatus, infraspinatus, B rhomboids, L UT and levator, L bicep tendon (long head), L anterior deltoid and pecs PT-OP-H Neuro Start: 07/16/18 15:05 Freq: Status: Active Protocol: Document 07/15/18 16:00 RCC (Rec: 07/16/18 17:15 RCC [email or web address]) Sensation Evaluation Gross Sensation Gross Sensation WNL Deep Tendon Reflex & Clonus Assessment Deep Tendon Reflex Bilateral Brachioradialis Deep Tendon Reflex 2+ Normal Bilateral Tricep Deep Tendon Reflex 2+ Normal Bilateral Bicep Deep Tendon Reflex 2+ Normal PT-OP-J Posture/Palpation/Skin Start: 07/16/18 15:05 Freq: Status: Active Protocol: Document 07/15/18 16:00 RCC (Rec: 07/16/18 17:15 RCC [email or web address]) Posture Evaluation Comments Posture Comments moderate forward head and rounded shoulders. L shoulder elevated with position of L shoulder adduction, IR and elbow flexion. PT-OP-K Range of Motion Start: 07/16/18 15:05 Freq: Status: Active Protocol: Document 08/19/18 09:45 RCC (Rec: 08/19/18 18:25 RCC [email or web address]) Shoulder Goniometric Range of Motion Shoulder Measured in Degrees Left Passive Testing Position Supine Flexion 150 Abduction 110 External Rotation at 0 degrees Abduction 54 Internal Rotation 68 Left Active Testing Position Sitting Flexion 92 Abduction 60 PT-OP-L Special Tests Start: 07/16/18 15:05 Freq: Status: Active Protocol: Document 07/15/18 16:00 RCC (Rec: 07/16/18 17:15 RCC [email or web address]) Special Tests Cervical Spine Special Tests Spurling's Test Test Results negative Foraminal Compression Test Results negative Shoulder Special Tests Yergason's Biceps Test Results positive L Speed's Biceps Test Results positive L Bansal Kelvin Impingement Test Results positive L Empty Can Test Results positive L Drop Arm Rotator Cuff Test Results positive L Belly Press Test Results negative Lift-Off Rotator Cuff Test Results negative Comments painful but able to do with L hand PT-OP-M Strength Start: 07/16/18 15:05 Freq: Status: Active Protocol: Document 07/15/18 16:00 RCC (Rec: 07/16/18 17:15 RCC [email or web address]) Shoulder Strength Shoulder Manual Muscle Testing Left Flexion 2 Poor Abduction (C5) 2 Poor External Rotation 3 Fair Internal Rotation 3 Fair Horizontal Abduction 3+ Fair+ Horizontal Adduction 3+ Fair+ Right Flexion 5 Normal Abduction (C5) 5 Normal External Rotation 5 Normal Internal Rotation 5 Normal Horizontal Abduction 5 Normal Horizontal Adduction 5 Normal Elbow/Forearm Strength Elbow and Forearm Manual Muscle Testing Right Flexion (C6) 3+ Fair+ Extension (C7) 4 Good Left Flexion (C6) 4+ Good+ Extension (C7) 4+ Good+ PT-OP-Q Treatments Start: 07/16/18 15:05 Freq: Status: Active Protocol: Document 08/19/18 09:45 RCC (Rec: 08/19/18 18:25 RCC [email or web address]) Therapeutic Exercises Supine Exercises scapular retraction/shoulder extension Side bilateral Reps/Minutes 10 x 5 Comments supine Sitting Exercises Scapular retraction Side bilateral Reps/Minutes 30x pulleys Sitting Exercise Name flexion and abduction Side left Reps/Minutes 15 x each Manual Therapy Treatment Soft Tissue Mobilization 1 Body Location left upper trap, pec, and levator, Supraspinatus Mobilization Type Myofascial Release Rolling Trigger Point Release Intensity/Depth Superficial Body Position Supine Comments Manual UT stretching. Joint Mobilizations 1 Joint GH joint Direction inf/ post Grade II Body Position Supine Manual Techniques PROM Type PROM L shoulder- IR, ER, abd, flexion Reps/Duration 10 each PT-OP-R Modalities Start: 07/16/18 15:05 Freq: Status: Active Protocol: Document 08/17/18 10:23 SA (Rec: 08/17/18 10:31 SA [email or web address]) Hot Pack/Cold Pack Treatment Cold Pack Location L shoulder Patient Position Hooklying Treatment Duration (minutes) 10 Patient Tolerance Good PT-OP-T Assessment and Plan Start: 07/16/18 15:05 Freq: Status: Active Protocol: Document 08/19/18 09:45 RCC (Rec: 08/19/18 18:25 RCC [email or web address]) Physical Therapy Assessment Assessment Summary Assessment Pt's L shoulder active and passive ROM improved slightly since initial evaluation, although she admits to a set- back with increased pain from performing her senior exercise class. Encouraged pt to continue to participate but do not perform any AROM of the L shoulder during class and maintain her HEP. Pt does have 4/10 rated pain in L shoulder which is a slight improvement but objective measures would have likely been improved greater if not for set-back with her exercise class. Physical Therapy Plan Frequency and Duration Frequency of Treatment 2x/Week Duration of Treatment 12 weeks Plan of Care Start Date 07/15/18 Plan of Care End Date 10/07/18 Next Visit Focus/Plan Next Note Type Treatment Note Next Visit Plan cont. to advance L shoulder ROM and scapulohumeral rhythm
--- NOTE | 2018-08-24 11:41 | PT.OTN ---
Current Diagnoses Pain in left shoulder (08/24/18) Physical Therapy Treatment Note PT-OP-A Visit Information Start: 07/16/18 15:05 Freq: Status: Active Protocol: Document 08/24/18 11:34 SA (Rec: 08/24/18 11:40 SA [email or web address]) Out-Patient Physical Therapy Visit Information Visit Information Visit Type Treatment Note Visit Start Time 09:40 Visit Stop Time 10:11 Total Visit Minutes 31 Visit Number 11 Number of PRINCIPLE INDUSTRIAL HYGIENIST Visits 1 PT-OP-B Current Condition Start: 07/16/18 15:05 Freq: Status: Active Protocol: Document 07/15/18 16:00 RCC (Rec: 07/16/18 17:15 RCC [email or web address]) Current Condition History of Current Condition Onset Date April 2018 or May 2018 Current Complaints L shoulder pain, weakness History of Current Condition Pt is a 78 y/o female presenting to physical therapy with a c/o L shoulder pain. Onset in April 2018 or May 2018, pt woke up one morning with shoulder pain on the L side. She felt like she may have slept on it wrong, but continued to be painful, along with weakness and worsening ROM. She denies any trauma to the L shoulder. She also denies any numbness or tingling. Pt is R hand dominant. Aggravating factors include: reaching behind her back and away from her body. The only relieving factor the pt has found is to not move her L hand or arm and always support it closer to her body. She has not found any medications to help and she has done ice with some assistance for short periods. Radiograph of L shoulder showed glenohumeral degenerative spurring and subchondral sclerosis, no calcifications in soft tissue. Radiograph also showed severe scoliosis. Pt has not had MRI yet. She does an exercises class weekly at the [employer], but is unable to participate in UE work due to her shoulder pain and limited motion. Prior Treatments and Tests radiograph (see above) Future Testing and Treatments Planned MRI of L shoulder (if PT fails ) Treatment Goals Patient/Caregiver Goals to be able to participate in [employer] strength and balance class, decrease pain Prior Functional Status Baseline Function- Recreation/Hobbies able to participate in [employer] balance and strength class without restrictions or pain Current Functional Impairments (Reported) Functional Limitations- Recreation/ unable to do UE work during Hobbies the [employer] strength and balance class. Personal Factors Other Personal Factors That May Effect hearing impairment (loss of Therapy/Recovery hearing but unable to afford hearing aids per pt), age- related visual problems, depression, pt reports tremors (on carbidopa- levadopa) PT-OP-C Subjective Start: 07/16/18 15:05 Freq: Status: Active Protocol: Document 08/24/18 11:34 SA (Rec: 08/24/18 11:40 SA [email or web address]) OP-PT Subjective Patient Comments Patient Comments Pt doing exercise class but is not using weights and seems to minal tolerating better. PT-OP-E Functional Tests Start: 07/16/18 15:05 Freq: Status: Active Protocol: Document 07/15/18 16:00 RCC (Rec: 07/16/18 17:15 RCC [email or web address]) Functional Tests Apley's Scratch Test Action 1: The subject is instructed to touch the opposite shoulder with his/her hand. This motion checks Glenohumeral adduction, internal rotation , horizontal adduction and scapular protraction Action 2: The subject is instructed to place his/her arm overhead and reach behind the neck to touch his/her upper back. This motion checks Glenohumeral abduction, external rotation and scapular upward rotation and elevation. Action 3: The subject puts his/her hand on the lower back and reaches upward as far as possible. This motion checks glenohumeral adduction, internal rotation and scapular retraction with downward rotation Action 1- Left unable Action 1- Right able to perform Action 2- Left top of head Action 2- Right occiput Action 3- Left L5 Action 3- Right T6 PT-OP-F Manual Assessment Start: 07/16/18 15:05 Freq: Status: Active Protocol: Document 07/15/18 16:00 RCC (Rec: 07/16/18 17:15 RCC [email or web address]) Manual Assessments Soft Tissue Assessment Soft Tissue Mobility Assessment Tenderness to palpation: L supraspinatus, infraspinatus, B rhomboids, L UT and levator, L bicep tendon (long head), L anterior deltoid and pecs PT-OP-H Neuro Start: 07/16/18 15:05 Freq: Status: Active Protocol: Document 07/15/18 16:00 RCC (Rec: 07/16/18 17:15 RCC [email or web address]) Sensation Evaluation Gross Sensation Gross Sensation WNL Deep Tendon Reflex & Clonus Assessment Deep Tendon Reflex Bilateral Brachioradialis Deep Tendon Reflex 2+ Normal Bilateral Tricep Deep Tendon Reflex 2+ Normal Bilateral Bicep Deep Tendon Reflex 2+ Normal PT-OP-J Posture/Palpation/Skin Start: 07/16/18 15:05 Freq: Status: Active Protocol: Document 07/15/18 16:00 RCC (Rec: 07/16/18 17:15 RCC [email or web address]) Posture Evaluation Comments Posture Comments moderate forward head and rounded shoulders. L shoulder elevated with position of L shoulder adduction, IR and elbow flexion. PT-OP-K Range of Motion Start: 07/16/18 15:05 Freq: Status: Active Protocol: Document 08/19/18 09:45 RCC (Rec: 08/19/18 18:25 RCC [email or web address]) Shoulder Goniometric Range of Motion Shoulder Measured in Degrees Left Passive Testing Position Supine Flexion 150 Abduction 110 External Rotation at 0 degrees Abduction 54 Internal Rotation 68 Left Active Testing Position Sitting Flexion 92 Abduction 60 PT-OP-L Special Tests Start: 07/16/18 15:05 Freq: Status: Active Protocol: Document 07/15/18 16:00 RCC (Rec: 07/16/18 17:15 RCC [email or web address]) Special Tests Cervical Spine Special Tests Spurling's Test Test Results negative Foraminal Compression Test Results negative Shoulder Special Tests Yergason's Biceps Test Results positive L Speed's Biceps Test Results positive L Bansal Kelvin Impingement Test Results positive L Empty Can Test Results positive L Drop Arm Rotator Cuff Test Results positive L Belly Press Test Results negative Lift-Off Rotator Cuff Test Results negative Comments painful but able to do with L hand PT-OP-M Strength Start: 07/16/18 15:05 Freq: Status: Active Protocol: Document 07/15/18 16:00 RCC (Rec: 07/16/18 17:15 RCC [email or web address]) Shoulder Strength Shoulder Manual Muscle Testing Left Flexion 2 Poor Abduction (C5) 2 Poor External Rotation 3 Fair Internal Rotation 3 Fair Horizontal Abduction 3+ Fair+ Horizontal Adduction 3+ Fair+ Right Flexion 5 Normal Abduction (C5) 5 Normal External Rotation 5 Normal Internal Rotation 5 Normal Horizontal Abduction 5 Normal Horizontal Adduction 5 Normal Elbow/Forearm Strength Elbow and Forearm Manual Muscle Testing Right Flexion (C6) 3+ Fair+ Extension (C7) 4 Good Left Flexion (C6) 4+ Good+ Extension (C7) 4+ Good+ PT-OP-Q Treatments Start: 07/16/18 15:05 Freq: Status: Active Protocol: Document 08/24/18 11:34 SA (Rec: 08/24/18 11:40 [email or web address]) Therapeutic Exercises Supine Exercises shoulder abduction Supine Exercise Name T bar shoulder abduction Side left Reps/Minutes 12x Comments PT assisted ROM within pain- free range (not ready for HEP yet) Shoulder ER/IR Supine Exercise Name with wand Reps/Minutes 15x scapular retraction/shoulder extension Side bilateral Reps/Minutes 10 x 5 Comments supine Sitting Exercises Scapular retraction Side bilateral Reps/Minutes 10 x 5 pulleys Sitting Exercise Name flexion and abduction Side left Reps/Minutes 15 x each Standing Exercises pec stretch Standing Exercise Name manual Side bilateral Reps/Minutes 30 x 3 Manual Therapy Treatment Soft Tissue Mobilization 1 Body Location left upper trap, pec, and levator, Supraspinatus Mobilization Type Myofascial Release Rolling Trigger Point Release Intensity/Depth Superficial Body Position Supine Comments Manual UT stretching. Joint Mobilizations 1 Joint GH joint Direction inf/ post Grade II Body Position Supine PT-OP-R Modalities Start: 07/16/18 15:05 Freq: Status: Active Protocol: Document 08/17/18 10:23 SA (Rec: 08/17/18 10:31 [email or web address]) Hot Pack/Cold Pack Treatment Cold Pack Location L shoulder Patient Position Hooklying Treatment Duration (minutes) 10 Patient Tolerance Good PT-OP-T Assessment and Plan Start: 07/16/18 15:05 Freq: Status: Active Protocol: Document 08/24/18 11:34 SA (Rec: 08/24/18 11:40 [email or web address]) Physical Therapy Assessment Assessment Summary Assessment Some pain at end range, pt tolerating manual therapy well and gradual exercise progressions. Physical Therapy Plan Next Visit Focus/Plan Next Note Type Treatment Note Next Visit Plan cont. to advance L shoulder ROM and scapulohumeral rhythm
--- NOTE | 2018-08-31 11:29 | PT.OTN ---
Current Diagnoses Pain in left shoulder (08/31/18) Physical Therapy Treatment Note PT-OP-A Visit Information Start: 07/16/18 15:05 Freq: Status: Active Protocol: Document 08/31/18 11:18 SA (Rec: 08/31/18 11:28 SA [email or web address]) Out-Patient Physical Therapy Visit Information Visit Information Visit Type Treatment Note Visit Start Time 09:45 Visit Stop Time 10:30 Total Visit Minutes 45 Visit Number 12 Number of MAKEUP SALES ADVISOR Visits 2 PT-OP-B Current Condition Start: 07/16/18 15:05 Freq: Status: Active Protocol: Document 07/15/18 16:00 RCC (Rec: 07/16/18 17:15 RCC [email or web address]) Current Condition History of Current Condition Onset Date April 2018 or May 2018 Current Complaints L shoulder pain, weakness History of Current Condition Pt is a 78 y/o female presenting to physical therapy with a c/o L shoulder pain. Onset in April 2018 or May 2018, pt woke up one morning with shoulder pain on the L side. She felt like she may have slept on it wrong, but continued to be painful, along with weakness and worsening ROM. She denies any trauma to the L shoulder. She also denies any numbness or tingling. Pt is R hand dominant. Aggravating factors include: reaching behind her back and away from her body. The only relieving factor the pt has found is to not move her L hand or arm and always support it closer to her body. She has not found any medications to help and she has done ice with some assistance for short periods. Radiograph of L shoulder showed glenohumeral degenerative spurring and subchondral sclerosis, no calcifications in soft tissue. Radiograph also showed severe scoliosis. Pt has not had MRI yet. She does an exercises class weekly at the [employer], but is unable to participate in UE work due to her shoulder pain and limited motion. Prior Treatments and Tests radiograph (see above) Future Testing and Treatments Planned MRI of L shoulder (if PT fails ) Treatment Goals Patient/Caregiver Goals to be able to participate in [employer] strength and balance class, decrease pain Prior Functional Status Baseline Function- Recreation/Hobbies able to participate in [employer] balance and strength class without restrictions or pain Current Functional Impairments (Reported) Functional Limitations- Recreation/ unable to do UE work during Hobbies the [employer] strength and balance class. Personal Factors Other Personal Factors That May Effect hearing impairment (loss of Therapy/Recovery hearing but unable to afford hearing aids per pt), age- related visual problems, depression, pt reports tremors (on carbidopa- levadopa) PT-OP-C Subjective Start: 07/16/18 15:05 Freq: Status: Active Protocol: Document 08/31/18 11:18 SA (Rec: 08/31/18 11:28 SA [email or web address]) OP-PT Subjective Patient Comments Patient Comments Pt reports feeling pretty good , having increased periods of no pain. Doing senior exercise program 3x/week. PT-OP-E Functional Tests Start: 07/16/18 15:05 Freq: Status: Active Protocol: Document 07/15/18 16:00 RCC (Rec: 07/16/18 17:15 RCC [email or web address]) Functional Tests Apley's Scratch Test Action 1: The subject is instructed to touch the opposite shoulder with his/her hand. This motion checks Glenohumeral adduction, internal rotation , horizontal adduction and scapular protraction Action 2: The subject is instructed to place his/her arm overhead and reach behind the neck to touch his/her upper back. This motion checks Glenohumeral abduction, external rotation and scapular upward rotation and elevation. Action 3: The subject puts his/her hand on the lower back and reaches upward as far as possible. This motion checks glenohumeral adduction, internal rotation and scapular retraction with downward rotation Action 1- Left unable Action 1- Right able to perform Action 2- Left top of head Action 2- Right occiput Action 3- Left L5 Action 3- Right T6 PT-OP-F Manual Assessment Start: 07/16/18 15:05 Freq: Status: Active Protocol: Document 07/15/18 16:00 RCC (Rec: 07/16/18 17:15 RCC [email or web address]) Manual Assessments Soft Tissue Assessment Soft Tissue Mobility Assessment Tenderness to palpation: L supraspinatus, infraspinatus, B rhomboids, L UT and levator, L bicep tendon (long head), L anterior deltoid and pecs PT-OP-H Neuro Start: 07/16/18 15:05 Freq: Status: Active Protocol: Document 07/15/18 16:00 RCC (Rec: 07/16/18 17:15 RCC [email or web address]) Sensation Evaluation Gross Sensation Gross Sensation WNL Deep Tendon Reflex & Clonus Assessment Deep Tendon Reflex Bilateral Brachioradialis Deep Tendon Reflex 2+ Normal Bilateral Tricep Deep Tendon Reflex 2+ Normal Bilateral Bicep Deep Tendon Reflex 2+ Normal PT-OP-J Posture/Palpation/Skin Start: 07/16/18 15:05 Freq: Status: Active Protocol: Document 07/15/18 16:00 RCC (Rec: 07/16/18 17:15 RCC [email or web address]) Posture Evaluation Comments Posture Comments moderate forward head and rounded shoulders. L shoulder elevated with position of L shoulder adduction, IR and elbow flexion. PT-OP-K Range of Motion Start: 07/16/18 15:05 Freq: Status: Active Protocol: Document 08/19/18 09:45 RCC (Rec: 08/19/18 18:25 RCC [email or web address]) Shoulder Goniometric Range of Motion Shoulder Measured in Degrees Left Passive Testing Position Supine Flexion 150 Abduction 110 External Rotation at 0 degrees Abduction 54 Internal Rotation 68 Left Active Testing Position Sitting Flexion 92 Abduction 60 PT-OP-L Special Tests Start: 07/16/18 15:05 Freq: Status: Active Protocol: Document 07/15/18 16:00 RCC (Rec: 07/16/18 17:15 RCC [email or web address]) Special Tests Cervical Spine Special Tests Spurling's Test Test Results negative Foraminal Compression Test Results negative Shoulder Special Tests Yergason's Biceps Test Results positive L Speed's Biceps Test Results positive L Bansal Kelvin Impingement Test Results positive L Empty Can Test Results positive L Drop Arm Rotator Cuff Test Results positive L Belly Press Test Results negative Lift-Off Rotator Cuff Test Results negative Comments painful but able to do with L hand PT-OP-M Strength Start: 07/16/18 15:05 Freq: Status: Active Protocol: Document 07/15/18 16:00 RCC (Rec: 07/16/18 17:15 RCC [email or web address]) Shoulder Strength Shoulder Manual Muscle Testing Left Flexion 2 Poor Abduction (C5) 2 Poor External Rotation 3 Fair Internal Rotation 3 Fair Horizontal Abduction 3+ Fair+ Horizontal Adduction 3+ Fair+ Right Flexion 5 Normal Abduction (C5) 5 Normal External Rotation 5 Normal Internal Rotation 5 Normal Horizontal Abduction 5 Normal Horizontal Adduction 5 Normal Elbow/Forearm Strength Elbow and Forearm Manual Muscle Testing Right Flexion (C6) 3+ Fair+ Extension (C7) 4 Good Left Flexion (C6) 4+ Good+ Extension (C7) 4+ Good+ PT-OP-Q Treatments Start: 07/16/18 15:05 Freq: Status: Active Protocol: Document 08/31/18 11:18 SA (Rec: 08/31/18 11:28 [email or web address]) Therapeutic Exercises Supine Exercises shoulder abduction Supine Exercise Name T bar shoulder abduction Side left Reps/Minutes 12x Comments PT assisted ROM within pain- free range (not ready for HEP yet) Shoulder ER/IR Side left Resistance 1# dumbell Reps/Minutes 15 x each Sitting Exercises Scapular retraction Side bilateral Reps/Minutes 10 x 5 pulleys Sitting Exercise Name flexion and abduction Side left Reps/Minutes 3 min Standing Exercises Shoulder EXT Side left Resistance #1 TB Reps/Minutes 15x Shoulder Flexion Side left Resistance #1 TB Reps/Minutes 15x Scapular row Side bilateral Resistance #1 TB Reps/Minutes 20x pec stretch Standing Exercise Name manual Side bilateral Reps/Minutes 30 x 3 Manual Therapy Treatment Soft Tissue Mobilization 1 Body Location left upper trap, pec, and levator, Supraspinatus Mobilization Type Myofascial Release Rolling Trigger Point Release Intensity/Depth Superficial Body Position Supine Comments Manual UT stretching. Joint Mobilizations 1 Joint GH joint Direction inf/ post Grade II Body Position Supine Manual Techniques PROM Type PROM L shoulder- IR, ER, abd, flexion Reps/Duration 10 each PT-OP-R Modalities Start: 07/16/18 15:05 Freq: Status: Active Protocol: Document 08/31/18 11:18 (Rec: 08/31/18 11:28 [email or web address]) Hot Pack/Cold Pack Treatment Cold Pack Location L shoulder Patient Position Hooklying Treatment Duration (minutes) 10 Patient Tolerance Good PT-OP-T Assessment and Plan Start: 07/16/18 15:05 Freq: Status: Active Protocol: Document 08/31/18 11:18 (Rec: 08/31/18 11:28 [email or web address]) Physical Therapy Assessment Assessment Summary Assessment Pt tolerated ther ex progressions well, continues to limit weight with shoulder exercises at her seniorcise class. Physical Therapy Plan Next Visit Focus/Plan Next Note Type Treatment Note Next Visit Plan Assess response to new exercises and particpation in seniorcise classes, progress ROM and scapulohumeral rhythm.
--- NOTE | 2018-09-02 10:34 | PT.OTN ---
Current Diagnoses Pain in left shoulder (09/02/18) Physical Therapy Treatment Note PT-OP-A Visit Information Start: 07/16/18 15:05 Freq: Status: Active Protocol: Document 09/02/18 10:24 SA (Rec: 09/02/18 10:34 SA [email or web address]) Out-Patient Physical Therapy Visit Information Visit Information Visit Type Treatment Note Visit Start Time 09:45 Visit Stop Time 10:33 Total Visit Minutes 48 Visit Number 13 Number of VOCATIONAL SERVICES SPECIALIST Visits 3 PT-OP-B Current Condition Start: 07/16/18 15:05 Freq: Status: Active Protocol: Document 07/15/18 16:00 RCC (Rec: 07/16/18 17:15 RCC [email or web address]) Current Condition History of Current Condition Onset Date April 2018 or May 2018 Current Complaints L shoulder pain, weakness History of Current Condition Pt is a 78 y/o female presenting to physical therapy with a c/o L shoulder pain. Onset in April 2018 or May 2018, pt woke up one morning with shoulder pain on the L side. She felt like she may have slept on it wrong, but continued to be painful, along with weakness and worsening ROM. She denies any trauma to the L shoulder. She also denies any numbness or tingling. Pt is R hand dominant. Aggravating factors include: reaching behind her back and away from her body. The only relieving factor the pt has found is to not move her L hand or arm and always support it closer to her body. She has not found any medications to help and she has done ice with some assistance for short periods. Radiograph of L shoulder showed glenohumeral degenerative spurring and subchondral sclerosis, no calcifications in soft tissue. Radiograph also showed severe scoliosis. Pt has not had MRI yet. She does an exercises class weekly at the [employer], but is unable to participate in UE work due to her shoulder pain and limited motion. Prior Treatments and Tests radiograph (see above) Future Testing and Treatments Planned MRI of L shoulder (if PT fails ) Treatment Goals Patient/Caregiver Goals to be able to participate in [employer] strength and balance class, decrease pain Prior Functional Status Baseline Function- Recreation/Hobbies able to participate in [employer] balance and strength class without restrictions or pain Current Functional Impairments (Reported) Functional Limitations- Recreation/ unable to do UE work during Hobbies the [employer] strength and balance class. Personal Factors Other Personal Factors That May Effect hearing impairment (loss of Therapy/Recovery hearing but unable to afford hearing aids per pt), age- related visual problems, depression, pt reports tremors (on carbidopa- levadopa) PT-OP-C Subjective Start: 07/16/18 15:05 Freq: Status: Active Protocol: Document 09/02/18 10:24 SA (Rec: 09/02/18 10:34 SA [email or web address]) OP-PT Subjective Patient Comments Patient Comments Pt reports tolerating exercise class well and plans to try full class tomorrow, pain is very minimal today. PT-OP-E Functional Tests Start: 07/16/18 15:05 Freq: Status: Active Protocol: Document 07/15/18 16:00 RCC (Rec: 07/16/18 17:15 RCC [email or web address]) Functional Tests Apley's Scratch Test Action 1: The subject is instructed to touch the opposite shoulder with his/her hand. This motion checks Glenohumeral adduction, internal rotation , horizontal adduction and scapular protraction Action 2: The subject is instructed to place his/her arm overhead and reach behind the neck to touch his/her upper back. This motion checks Glenohumeral abduction, external rotation and scapular upward rotation and elevation. Action 3: The subject puts his/her hand on the lower back and reaches upward as far as possible. This motion checks glenohumeral adduction, internal rotation and scapular retraction with downward rotation Action 1- Left unable Action 1- Right able to perform Action 2- Left top of head Action 2- Right occiput Action 3- Left L5 Action 3- Right T6 PT-OP-F Manual Assessment Start: 07/16/18 15:05 Freq: Status: Active Protocol: Document 07/15/18 16:00 RCC (Rec: 07/16/18 17:15 RCC [email or web address]) Manual Assessments Soft Tissue Assessment Soft Tissue Mobility Assessment Tenderness to palpation: L supraspinatus, infraspinatus, B rhomboids, L UT and levator, L bicep tendon (long head), L anterior deltoid and pecs PT-OP-H Neuro Start: 07/16/18 15:05 Freq: Status: Active Protocol: Document 07/15/18 16:00 RCC (Rec: 07/16/18 17:15 RCC [email or web address]) Sensation Evaluation Gross Sensation Gross Sensation WNL Deep Tendon Reflex & Clonus Assessment Deep Tendon Reflex Bilateral Brachioradialis Deep Tendon Reflex 2+ Normal Bilateral Tricep Deep Tendon Reflex 2+ Normal Bilateral Bicep Deep Tendon Reflex 2+ Normal PT-OP-J Posture/Palpation/Skin Start: 07/16/18 15:05 Freq: Status: Active Protocol: Document 07/15/18 16:00 RCC (Rec: 07/16/18 17:15 RCC [email or web address]) Posture Evaluation Comments Posture Comments moderate forward head and rounded shoulders. L shoulder elevated with position of L shoulder adduction, IR and elbow flexion. PT-OP-K Range of Motion Start: 07/16/18 15:05 Freq: Status: Active Protocol: Document 08/19/18 09:45 RCC (Rec: 08/19/18 18:25 RCC [email or web address]) Shoulder Goniometric Range of Motion Shoulder Measured in Degrees Left Passive Testing Position Supine Flexion 150 Abduction 110 External Rotation at 0 degrees Abduction 54 Internal Rotation 68 Left Active Testing Position Sitting Flexion 92 Abduction 60 PT-OP-L Special Tests Start: 07/16/18 15:05 Freq: Status: Active Protocol: Document 07/15/18 16:00 RCC (Rec: 07/16/18 17:15 RCC [email or web address]) Special Tests Cervical Spine Special Tests Spurling's Test Test Results negative Foraminal Compression Test Results negative Shoulder Special Tests Yergason's Biceps Test Results positive L Speed's Biceps Test Results positive L Bansal Kelvin Impingement Test Results positive L Empty Can Test Results positive L Drop Arm Rotator Cuff Test Results positive L Belly Press Test Results negative Lift-Off Rotator Cuff Test Results negative Comments painful but able to do with L hand PT-OP-M Strength Start: 07/16/18 15:05 Freq: Status: Active Protocol: Document 07/15/18 16:00 RCC (Rec: 07/16/18 17:15 RCC [email or web address]) Shoulder Strength Shoulder Manual Muscle Testing Left Flexion 2 Poor Abduction (C5) 2 Poor External Rotation 3 Fair Internal Rotation 3 Fair Horizontal Abduction 3+ Fair+ Horizontal Adduction 3+ Fair+ Right Flexion 5 Normal Abduction (C5) 5 Normal External Rotation 5 Normal Internal Rotation 5 Normal Horizontal Abduction 5 Normal Horizontal Adduction 5 Normal Elbow/Forearm Strength Elbow and Forearm Manual Muscle Testing Right Flexion (C6) 3+ Fair+ Extension (C7) 4 Good Left Flexion (C6) 4+ Good+ Extension (C7) 4+ Good+ PT-OP-Q Treatments Start: 07/16/18 15:05 Freq: Status: Active Protocol: Document 09/02/18 10:24 SA (Rec: 09/02/18 10:34 [email or web address]) Cardio Equipment Upper Body Ergometer (UBE) Duration (Minutes) 5 RPM 70 Therapeutic Exercises Supine Exercises serratus punch Side left Resistance 1# Reps/Minutes 20x shoulder abduction Supine Exercise Name T bar shoulder abduction Side left Reps/Minutes 15x Comments PT assisted ROM within pain- free range (not ready for HEP yet) Shoulder ER/IR Side left Resistance 1# dumbell Reps/Minutes 15 x each Sitting Exercises pulleys Sitting Exercise Name flexion and abduction Side left Reps/Minutes 3 min Standing Exercises Shoulder EXT Side left Resistance #2 TB Reps/Minutes 20x Shoulder Flexion Side left Resistance #2 TB Reps/Minutes 20x Scapular row Side bilateral Resistance #2 TB Reps/Minutes 20x pec stretch Standing Exercise Name manual Side bilateral Reps/Minutes 30 x 3 Manual Therapy Treatment Soft Tissue Mobilization 1 Body Location left upper trap, pec, and levator, Supraspinatus Mobilization Type Myofascial Release Rolling Trigger Point Release Intensity/Depth Superficial Body Position Supine Comments Manual UT stretching. Joint Mobilizations 1 Joint GH joint Direction inf/ post Grade II Body Position Supine Manual Techniques PROM Type PROM L shoulder- IR, ER, abd, flexion Reps/Duration 15x PT-OP-R Modalities Start: 07/16/18 15:05 Freq: Status: Active Protocol: Document 09/02/18 10:24 (Rec: 09/02/18 10:34 [email or web address]) Hot Pack/Cold Pack Treatment Cold Pack Location L shoulder Patient Position Hooklying Treatment Duration (minutes) 10 Patient Tolerance Good PT-OP-T Assessment and Plan Start: 07/16/18 15:05 Freq: Status: Active Protocol: Document 09/02/18 10:24 (Rec: 09/02/18 10:34 [email or web address]) Physical Therapy Assessment Assessment Summary Assessment Pt tolerating ther ex well and progressing with seniorcise class, decreasing instances of pain during the day. Noted decreased L UT spasm. Physical Therapy Plan Next Visit Focus/Plan Next Note Type Treatment Note Next Visit Plan Assess response to new exercises and participation in seniorcise classes, progress ROM and scapulohumeral rhythm.
--- NOTE | 2018-09-07 11:20 | PT.OTN ---
Current Diagnoses Pain in left shoulder (09/07/18) Physical Therapy Treatment Note PT-OP-A Visit Information Start: 07/16/18 15:05 Freq: Status: Active Protocol: Document 09/07/18 11:12 SA (Rec: 09/07/18 11:20 SA [email or web address]) Out-Patient Physical Therapy Visit Information Visit Information Visit Type Treatment Note Visit Start Time 09:00 Visit Stop Time 09:50 Total Visit Minutes 50 Visit Number 14 Number of HEEL STAINER Visits 4 PT-OP-B Current Condition Start: 07/16/18 15:05 Freq: Status: Active Protocol: Document 07/15/18 16:00 RCC (Rec: 07/16/18 17:15 RCC [email or web address]) Current Condition History of Current Condition Onset Date April 2018 or May 2018 Current Complaints L shoulder pain, weakness History of Current Condition Pt is a 78 y/o female presenting to physical therapy with a c/o L shoulder pain. Onset in April 2018 or May 2018, pt woke up one morning with shoulder pain on the L side. She felt like she may have slept on it wrong, but continued to be painful, along with weakness and worsening ROM. She denies any trauma to the L shoulder. She also denies any numbness or tingling. Pt is R hand dominant. Aggravating factors include: reaching behind her back and away from her body. The only relieving factor the pt has found is to not move her L hand or arm and always support it closer to her body. She has not found any medications to help and she has done ice with some assistance for short periods. Radiograph of L shoulder showed glenohumeral degenerative spurring and subchondral sclerosis, no calcifications in soft tissue. Radiograph also showed severe scoliosis. Pt has not had MRI yet. She does an exercises class weekly at the [facility], but is unable to participate in UE work due to her shoulder pain and limited motion. Prior Treatments and Tests radiograph (see above) Future Testing and Treatments Planned MRI of L shoulder (if PT fails ) Treatment Goals Patient/Caregiver Goals to be able to participate in [facility] strength and balance class, decrease pain Prior Functional Status Baseline Function- Recreation/Hobbies able to participate in [facility] balance and strength class without restrictions or pain Current Functional Impairments (Reported) Functional Limitations- Recreation/ unable to do UE work during Hobbies the [facility] strength and balance class. Personal Factors Other Personal Factors That May Effect hearing impairment (loss of Therapy/Recovery hearing but unable to afford hearing aids per pt), age- related visual problems, depression, pt reports tremors (on carbidopa- levadopa) PT-OP-C Subjective Start: 07/16/18 15:05 Freq: Status: Active Protocol: Document 09/07/18 11:12 SA (Rec: 09/07/18 11:20 SA [email or web address]) OP-PT Subjective Patient Comments Patient Comments Pt tolerated completion of full exercise class well and plans to do again tomorrow, does report increased fatigue but not pain levels. PT-OP-E Functional Tests Start: 07/16/18 15:05 Freq: Status: Active Protocol: Document 07/15/18 16:00 RCC (Rec: 07/16/18 17:15 RCC [email or web address]) Functional Tests Apley's Scratch Test Action 1: The subject is instructed to touch the opposite shoulder with his/her hand. This motion checks Glenohumeral adduction, internal rotation , horizontal adduction and scapular protraction Action 2: The subject is instructed to place his/her arm overhead and reach behind the neck to touch his/her upper back. This motion checks Glenohumeral abduction, external rotation and scapular upward rotation and elevation. Action 3: The subject puts his/her hand on the lower back and reaches upward as far as possible. This motion checks glenohumeral adduction, internal rotation and scapular retraction with downward rotation Action 1- Left unable Action 1- Right able to perform Action 2- Left top of head Action 2- Right occiput Action 3- Left L5 Action 3- Right T6 PT-OP-F Manual Assessment Start: 07/16/18 15:05 Freq: Status: Active Protocol: Document 07/15/18 16:00 RCC (Rec: 07/16/18 17:15 RCC [email or web address]) Manual Assessments Soft Tissue Assessment Soft Tissue Mobility Assessment Tenderness to palpation: L supraspinatus, infraspinatus, B rhomboids, L UT and levator, L bicep tendon (long head), L anterior deltoid and pecs PT-OP-H Neuro Start: 07/16/18 15:05 Freq: Status: Active Protocol: Document 07/15/18 16:00 RCC (Rec: 07/16/18 17:15 RCC [email or web address]) Sensation Evaluation Gross Sensation Gross Sensation WNL Deep Tendon Reflex & Clonus Assessment Deep Tendon Reflex Bilateral Brachioradialis Deep Tendon Reflex 2+ Normal Bilateral Tricep Deep Tendon Reflex 2+ Normal Bilateral Bicep Deep Tendon Reflex 2+ Normal PT-OP-J Posture/Palpation/Skin Start: 07/16/18 15:05 Freq: Status: Active Protocol: Document 07/15/18 16:00 RCC (Rec: 07/16/18 17:15 RCC [email or web address]) Posture Evaluation Comments Posture Comments moderate forward head and rounded shoulders. L shoulder elevated with position of L shoulder adduction, IR and elbow flexion. PT-OP-K Range of Motion Start: 07/16/18 15:05 Freq: Status: Active Protocol: Document 08/19/18 09:45 RCC (Rec: 08/19/18 18:25 RCC [email or web address]) Shoulder Goniometric Range of Motion Shoulder Measured in Degrees Left Passive Testing Position Supine Flexion 150 Abduction 110 External Rotation at 0 degrees Abduction 54 Internal Rotation 68 Left Active Testing Position Sitting Flexion 92 Abduction 60 PT-OP-L Special Tests Start: 07/16/18 15:05 Freq: Status: Active Protocol: Document 07/15/18 16:00 RCC (Rec: 07/16/18 17:15 RCC [email or web address]) Special Tests Cervical Spine Special Tests Spurling's Test Test Results negative Foraminal Compression Test Results negative Shoulder Special Tests Yergason's Biceps Test Results positive L Speed's Biceps Test Results positive L Bansal Kelvin Impingement Test Results positive L Empty Can Test Results positive L Drop Arm Rotator Cuff Test Results positive L Belly Press Test Results negative Lift-Off Rotator Cuff Test Results negative Comments painful but able to do with L hand PT-OP-M Strength Start: 07/16/18 15:05 Freq: Status: Active Protocol: Document 07/15/18 16:00 RCC (Rec: 07/16/18 17:15 RCC [email or web address]) Shoulder Strength Shoulder Manual Muscle Testing Left Flexion 2 Poor Abduction (C5) 2 Poor External Rotation 3 Fair Internal Rotation 3 Fair Horizontal Abduction 3+ Fair+ Horizontal Adduction 3+ Fair+ Right Flexion 5 Normal Abduction (C5) 5 Normal External Rotation 5 Normal Internal Rotation 5 Normal Horizontal Abduction 5 Normal Horizontal Adduction 5 Normal Elbow/Forearm Strength Elbow and Forearm Manual Muscle Testing Right Flexion (C6) 3+ Fair+ Extension (C7) 4 Good Left Flexion (C6) 4+ Good+ Extension (C7) 4+ Good+ PT-OP-Q Treatments Start: 07/16/18 15:05 Freq: Status: Active Protocol: Document 09/07/18 11:12 (Rec: 09/07/18 11:20 [email or web address]) Cardio Equipment Upper Body Ergometer (UBE) Duration (Minutes) 6 RPM 65 Other forward/backward Therapeutic Exercises Supine Exercises serratus punch Side left Resistance 2# Reps/Minutes 20x shoulder abduction Supine Exercise Name T bar shoulder abduction Side left Reps/Minutes 15x Comments PT assisted ROM within pain- free range (not ready for HEP yet) Shoulder ER/IR Side left Resistance 2# Reps/Minutes 15 x each Sitting Exercises pulleys Sitting Exercise Name flexion and abduction and IR Side left Reps/Minutes 3 min Standing Exercises Shoulder EXT Side left Resistance #2 TB Reps/Minutes 20x Shoulder Flexion Side left Resistance #2 TB Reps/Minutes 20x Scapular row Side bilateral Resistance #2 TB Reps/Minutes 20x pec stretch Standing Exercise Name manual Side bilateral Reps/Minutes 30 x 3 Manual Therapy Treatment Soft Tissue Mobilization 1 Body Location left upper trap, pec, and levator, Supraspinatus Mobilization Type Myofascial Release Rolling Trigger Point Release Intensity/Depth Moderate Body Position Supine Comments Manual UT stretching. Joint Mobilizations 1 Joint GH joint Direction inf/ post Grade II Body Position Supine Manual Techniques PROM Type PROM L shoulder- IR, ER, abd, flexion Reps/Duration 15x PT-OP-R Modalities Start: 07/16/18 15:05 Freq: Status: Active Protocol: Document 09/07/18 11:12 (Rec: 09/07/18 11:20 [email or web address]) Hot Pack/Cold Pack Treatment Cold Pack Location L shoulder Patient Position Hooklying Treatment Duration (minutes) 10 Patient Tolerance Good PT-OP-T Assessment and Plan Start: 07/16/18 15:05 Freq: Status: Active Protocol: Document 09/07/18 11:12 (Rec: 09/07/18 11:20 [email or web address]) Physical Therapy Assessment Assessment Summary Assessment Pt progressing well with strengthening and ROM exercise , increasing participation in [facility] class. Physical Therapy Plan Next Visit Focus/Plan Next Note Type Treatment Note Next Visit Plan Assess response to new exercises and participation in [facility] classes, progress ROM and scapulohumeral rhythm.
--- NOTE | 2018-09-09 09:45 | PT.OTN ---
Current Diagnoses Pain in left shoulder (09/09/18) Physical Therapy Treatment Note PT-OP-A Visit Information Start: 07/16/18 15:05 Freq: Status: Active Protocol: Document 09/09/18 09:45 DLM (Rec: 09/09/18 18:36 DLM [email or web address]) Out-Patient Physical Therapy Visit Information Visit Information Visit Type Treatment Note Visit Start Time 09:45 Visit Stop Time 10:40 Total Visit Minutes 55 Visit Number 15 Number of PLASTIC PANEL INSTALLER Visits 0 Evaluation Information Evaluation Date 07/15/18 PT-OP-B Current Condition Start: 07/16/18 15:05 Freq: Status: Active Protocol: Document 07/15/18 16:00 RCC (Rec: 07/16/18 17:15 RCC [email or web address]) Current Condition History of Current Condition Onset Date April 2018 or May 2018 Current Complaints L shoulder pain, weakness History of Current Condition Pt is a 78 y/o female presenting to physical therapy with a c/o L shoulder pain. Onset in April 2018 or May 2018, pt woke up one morning with shoulder pain on the L side. She felt like she may have slept on it wrong, but continued to be painful, along with weakness and worsening ROM. She denies any trauma to the L shoulder. She also denies any numbness or tingling. Pt is R hand dominant. Aggravating factors include: reaching behind her back and away from her body. The only relieving factor the pt has found is to not move her L hand or arm and always support it closer to her body. She has not found any medications to help and she has done ice with some assistance for short periods. Radiograph of L shoulder showed glenohumeral degenerative spurring and subchondral sclerosis, no calcifications in soft tissue. Radiograph also showed severe scoliosis. Pt has not had MRI yet. She does an exercises class weekly at the [facility], but is unable to participate in UE work due to her shoulder pain and limited motion. Prior Treatments and Tests radiograph (see above) Future Testing and Treatments Planned MRI of L shoulder (if PT fails ) Treatment Goals Patient/Caregiver Goals to be able to participate in [employer] strength and balance class, decrease pain Prior Functional Status Baseline Function- Recreation/Hobbies able to participate in [employer] balance and strength class without restrictions or pain Current Functional Impairments (Reported) Functional Limitations- Recreation/ unable to do UE work during Hobbies the [facility] strength and balance class. Personal Factors Other Personal Factors That May Effect hearing impairment (loss of Therapy/Recovery hearing but unable to afford hearing aids per pt), age- related visual problems, depression, pt reports tremors (on carbidopa- levadopa) PT-OP-C Subjective Start: 07/16/18 15:05 Freq: Status: Active Protocol: Document 09/09/18 09:45 DLM (Rec: 09/09/18 18:36 DLM [email or web address]) OP-PT Subjective Patient Comments Patient Comments She tolerated the exercise class at the [facility] well. OP-PT Pain Assessment Location Right Shoulder Intensity 2 Scale Used Numeric (1 - 10) Description Aching L shoulder Intensity 4 Scale Used Numeric (1 - 10) Description Aching PT-OP-E Functional Tests Start: 07/16/18 15:05 Freq: Status: Active Protocol: Document 07/15/18 16:00 RCC (Rec: 07/16/18 17:15 RCC [email or web address]) Functional Tests Apley's Scratch Test Action 1: The subject is instructed to touch the opposite shoulder with his/her hand. This motion checks Glenohumeral adduction, internal rotation , horizontal adduction and scapular protraction Action 2: The subject is instructed to place his/her arm overhead and reach behind the neck to touch his/her upper back. This motion checks Glenohumeral abduction, external rotation and scapular upward rotation and elevation. Action 3: The subject puts his/her hand on the lower back and reaches upward as far as possible. This motion checks glenohumeral adduction, internal rotation and scapular retraction with downward rotation Action 1- Left unable Action 1- Right able to perform Action 2- Left top of head Action 2- Right occiput Action 3- Left L5 Action 3- Right T6 PT-OP-F Manual Assessment Start: 07/16/18 15:05 Freq: Status: Active Protocol: Document 07/15/18 16:00 RCC (Rec: 07/16/18 17:15 RCC [email or web address]) Manual Assessments Soft Tissue Assessment Soft Tissue Mobility Assessment Tenderness to palpation: L supraspinatus, infraspinatus, B rhomboids, L UT and levator, L bicep tendon (long head), L anterior deltoid and pecs PT-OP-H Neuro Start: 07/16/18 15:05 Freq: Status: Active Protocol: Document 07/15/18 16:00 RCC (Rec: 07/16/18 17:15 RCC [email or web address]) Sensation Evaluation Gross Sensation Gross Sensation WNL Deep Tendon Reflex & Clonus Assessment Deep Tendon Reflex Bilateral Brachioradialis Deep Tendon Reflex 2+ Normal Bilateral Tricep Deep Tendon Reflex 2+ Normal Bilateral Bicep Deep Tendon Reflex 2+ Normal PT-OP-J Posture/Palpation/Skin Start: 07/16/18 15:05 Freq: Status: Active Protocol: Document 07/15/18 16:00 RCC (Rec: 07/16/18 17:15 RCC [email or web address]) Posture Evaluation Comments Posture Comments moderate forward head and rounded shoulders. L shoulder elevated with position of L shoulder adduction, IR and elbow flexion. PT-OP-K Range of Motion Start: 07/16/18 15:05 Freq: Status: Active Protocol: Document 08/19/18 09:45 RCC (Rec: 08/19/18 18:25 RCC [email or web address]) Shoulder Goniometric Range of Motion Shoulder Measured in Degrees Left Passive Testing Position Supine Flexion 150 Abduction 110 External Rotation at 0 degrees Abduction 54 Internal Rotation 68 Left Active Testing Position Sitting Flexion 92 Abduction 60 PT-OP-L Special Tests Start: 07/16/18 15:05 Freq: Status: Active Protocol: Document 07/15/18 16:00 RCC (Rec: 07/16/18 17:15 RCC [email or web address]) Special Tests Cervical Spine Special Tests Spurling's Test Test Results negative Foraminal Compression Test Results negative Shoulder Special Tests Yergason's Biceps Test Results positive L Speed's Biceps Test Results positive L Bansal Kelvin Impingement Test Results positive L Empty Can Test Results positive L Drop Arm Rotator Cuff Test Results positive L Belly Press Test Results negative Lift-Off Rotator Cuff Test Results negative Comments painful but able to do with L hand PT-OP-M Strength Start: 07/16/18 15:05 Freq: Status: Active Protocol: Document 07/15/18 16:00 RCC (Rec: 07/16/18 17:15 RCC [email or web address]) Shoulder Strength Shoulder Manual Muscle Testing Left Flexion 2 Poor Abduction (C5) 2 Poor External Rotation 3 Fair Internal Rotation 3 Fair Horizontal Abduction 3+ Fair+ Horizontal Adduction 3+ Fair+ Right Flexion 5 Normal Abduction (C5) 5 Normal External Rotation 5 Normal Internal Rotation 5 Normal Horizontal Abduction 5 Normal Horizontal Adduction 5 Normal Elbow/Forearm Strength Elbow and Forearm Manual Muscle Testing Right Flexion (C6) 3+ Fair+ Extension (C7) 4 Good Left Flexion (C6) 4+ Good+ Extension (C7) 4+ Good+ PT-OP-Q Treatments Start: 07/16/18 15:05 Freq: Status: Active Protocol: Document 09/09/18 09:45 DLM (Rec: 09/09/18 18:36 DLM [email or web address]) Cardio Equipment Upper Body Ergometer (UBE) Duration (Minutes) 6 RPM 65 Other forward/backward Therapeutic Exercises Supine Exercises serratus punch Side left Resistance 2# Reps/Minutes 20x shoulder abduction Supine Exercise Name T bar shoulder abduction Side left Reps/Minutes 15x Comments PT assisted ROM within pain- free range (not ready for HEP yet) Shoulder ER/IR Side left Resistance 2# Reps/Minutes 15 x each Comments and 10 reps with T-bar Sitting Exercises Scapular retraction Side bilateral Reps/Minutes 10 x 5 pulleys Sitting Exercise Name flexion and abduction and IR Side left Reps/Minutes 3 min Comments standing for IR behind back Standing Exercises Shoulder EXT Side left Resistance #2 TB Reps/Minutes 20x reps Shoulder Flexion Side left Resistance #2 TB Reps/Minutes 20x Scapular row Side bilateral Resistance #2 TB Reps/Minutes 20x Manual Therapy Treatment Soft Tissue Mobilization 1 Body Location left upper trap, pec, and levator, Supraspinatus Mobilization Type Myofascial Release Rolling Trigger Point Release Intensity/Depth Moderate Body Position Supine Comments Manual UT stretching. Joint Mobilizations 1 Joint GH joint Direction inf/ post Grade II Body Position Supine Manual Techniques PROM Type PROM L shoulder- IR, ER, abd, flexion Reps/Duration 15x PT-OP-R Modalities Start: 07/16/18 15:05 Freq: Status: Active Protocol: Document 09/09/18 09:45 DLM (Rec: 09/09/18 18:36 DLM [email or web address]) Hot Pack/Cold Pack Treatment Cold Pack Location L shoulder Patient Position Hooklying Treatment Duration (minutes) 10 Patient Tolerance Good Comments after exercises PT-OP-T Assessment and Plan Start: 07/16/18 15:05 Freq: Status: Active Protocol: Document 09/09/18 09:45 DLM (Rec: 09/09/18 18:36 AGUSTIN [email or web address]) Physical Therapy Assessment Progress Towards Goals Progress Towards Goals Progressing Toward Goals Assessment Summary Assessment Mariah tolerated her treatment session well. She reports improved functional use of her shoulder and return to her exercise class. She continues to have more pain in left shoulder than right. Physical Therapy Plan Frequency and Duration Frequency of Treatment 2x/Week Plan of Care End Date 10/07/18 Next Visit Focus/Plan Next Note Type Treatment Note Next Visit Plan continue to progress her exercises for ROM and strength
--- NOTE | 2018-09-14 11:18 | PT.OTN ---
Current Diagnoses Pain in left shoulder (09/14/18) Physical Therapy Treatment Note PT-OP-A Visit Information Start: 07/16/18 15:05 Freq: Status: Active Protocol: Document 09/14/18 11:10 SA (Rec: 09/14/18 11:18 SA [email or web address]) Out-Patient Physical Therapy Visit Information Visit Information Visit Type Treatment Note Visit Start Time 09:00 Visit Stop Time 09:50 Total Visit Minutes 50 Visit Number 16 Number of [employer] Visits 1 PT-OP-B Current Condition Start: 07/16/18 15:05 Freq: Status: Active Protocol: Document 07/15/18 16:00 RCC (Rec: 07/16/18 17:15 RCC [email or web address]) Current Condition History of Current Condition Onset Date April 2018 or May 2018 Current Complaints L shoulder pain, weakness History of Current Condition Pt is a 78 y/o female presenting to physical therapy with a c/o L shoulder pain. Onset in April 2018 or May 2018, pt woke up one morning with shoulder pain on the L side. She felt like she may have slept on it wrong, but continued to be painful, along with weakness and worsening ROM. She denies any trauma to the L shoulder. She also denies any numbness or tingling. Pt is R hand dominant. Aggravating factors include: reaching behind her back and away from her body. The only relieving factor the pt has found is to not move her L hand or arm and always support it closer to her body. She has not found any medications to help and she has done ice with some assistance for short periods. Radiograph of L shoulder showed glenohumeral degenerative spurring and subchondral sclerosis, no calcifications in soft tissue. Radiograph also showed severe scoliosis. Pt has not had MRI yet. She does an exercises class weekly at the [employer], but is unable to participate in UE work due to her shoulder pain and limited motion. Prior Treatments and Tests radiograph (see above) Future Testing and Treatments Planned MRI of L shoulder (if PT fails ) Treatment Goals Patient/Caregiver Goals to be able to participate in [employer] strength and balance class, decrease pain Prior Functional Status Baseline Function- Recreation/Hobbies able to participate in [employer] balance and strength class without restrictions or pain Current Functional Impairments (Reported) Functional Limitations- Recreation/ unable to do UE work during Hobbies the [employer] strength and balance class. Personal Factors Other Personal Factors That May Effect hearing impairment (loss of Therapy/Recovery hearing but unable to afford hearing aids per pt), age- related visual problems, depression, pt reports tremors (on carbidopa- levadopa) PT-OP-C Subjective Start: 07/16/18 15:05 Freq: Status: Active Protocol: Document 09/14/18 11:10 SA (Rec: 09/14/18 11:18 SA [email or web address]) OP-PT Subjective Patient Comments Patient Comments Pt reports feeling stronger and doing well in exercise class 3x/wk. PT-OP-E Functional Tests Start: 07/16/18 15:05 Freq: Status: Active Protocol: Document 07/15/18 16:00 RCC (Rec: 07/16/18 17:15 RCC [email or web address]) Functional Tests Apley's Scratch Test Action 1: The subject is instructed to touch the opposite shoulder with his/her hand. This motion checks Glenohumeral adduction, internal rotation , horizontal adduction and scapular protraction Action 2: The subject is instructed to place his/her arm overhead and reach behind the neck to touch his/her upper back. This motion checks Glenohumeral abduction, external rotation and scapular upward rotation and elevation. Action 3: The subject puts his/her hand on the lower back and reaches upward as far as possible. This motion checks glenohumeral adduction, internal rotation and scapular retraction with downward rotation Action 1- Left unable Action 1- Right able to perform Action 2- Left top of head Action 2- Right occiput Action 3- Left L5 Action 3- Right T6 PT-OP-F Manual Assessment Start: 07/16/18 15:05 Freq: Status: Active Protocol: Document 07/15/18 16:00 RCC (Rec: 07/16/18 17:15 RCC [email or web address]) Manual Assessments Soft Tissue Assessment Soft Tissue Mobility Assessment Tenderness to palpation: L supraspinatus, infraspinatus, B rhomboids, L UT and levator, L bicep tendon (long head), L anterior deltoid and pecs PT-OP-H Neuro Start: 07/16/18 15:05 Freq: Status: Active Protocol: Document 07/15/18 16:00 RCC (Rec: 07/16/18 17:15 RCC [email or web address]) Sensation Evaluation Gross Sensation Gross Sensation WNL Deep Tendon Reflex & Clonus Assessment Deep Tendon Reflex Bilateral Brachioradialis Deep Tendon Reflex 2+ Normal Bilateral Tricep Deep Tendon Reflex 2+ Normal Bilateral Bicep Deep Tendon Reflex 2+ Normal PT-OP-J Posture/Palpation/Skin Start: 07/16/18 15:05 Freq: Status: Active Protocol: Document 07/15/18 16:00 RCC (Rec: 07/16/18 17:15 RCC [email or web address]) Posture Evaluation Comments Posture Comments moderate forward head and rounded shoulders. L shoulder elevated with position of L shoulder adduction, IR and elbow flexion. PT-OP-K Range of Motion Start: 07/16/18 15:05 Freq: Status: Active Protocol: Document 08/19/18 09:45 RCC (Rec: 08/19/18 18:25 RCC [email or web address]) Shoulder Goniometric Range of Motion Shoulder Measured in Degrees Left Passive Testing Position Supine Flexion 150 Abduction 110 External Rotation at 0 degrees Abduction 54 Internal Rotation 68 Left Active Testing Position Sitting Flexion 92 Abduction 60 PT-OP-L Special Tests Start: 07/16/18 15:05 Freq: Status: Active Protocol: Document 07/15/18 16:00 RCC (Rec: 07/16/18 17:15 RCC [email or web address]) Special Tests Cervical Spine Special Tests Spurling's Test Test Results negative Foraminal Compression Test Results negative Shoulder Special Tests Yergason's Biceps Test Results positive L Speed's Biceps Test Results positive L Bansal Kelvin Impingement Test Results positive L Empty Can Test Results positive L Drop Arm Rotator Cuff Test Results positive L Belly Press Test Results negative Lift-Off Rotator Cuff Test Results negative Comments painful but able to do with L hand PT-OP-M Strength Start: 07/16/18 15:05 Freq: Status: Active Protocol: Document 07/15/18 16:00 RCC (Rec: 07/16/18 17:15 RCC [email or web address]) Shoulder Strength Shoulder Manual Muscle Testing Left Flexion 2 Poor Abduction (C5) 2 Poor External Rotation 3 Fair Internal Rotation 3 Fair Horizontal Abduction 3+ Fair+ Horizontal Adduction 3+ Fair+ Right Flexion 5 Normal Abduction (C5) 5 Normal External Rotation 5 Normal Internal Rotation 5 Normal Horizontal Abduction 5 Normal Horizontal Adduction 5 Normal Elbow/Forearm Strength Elbow and Forearm Manual Muscle Testing Right Flexion (C6) 3+ Fair+ Extension (C7) 4 Good Left Flexion (C6) 4+ Good+ Extension (C7) 4+ Good+ PT-OP-Q Treatments Start: 07/16/18 15:05 Freq: Status: Active Protocol: Document 09/14/18 11:10 SA (Rec: 09/14/18 11:18 [email or web address]) Cardio Equipment Upper Body Ergometer (UBE) Duration (Minutes) 6 RPM 60 Other forward/backward Therapeutic Exercises Supine Exercises serratus punch Side left Resistance 3# Reps/Minutes 20x shoulder abduction Supine Exercise Name T bar shoulder abduction Side left Reps/Minutes 20x Shoulder ER/IR Side left Resistance 3# Reps/Minutes 15 x each Sitting Exercises pulleys Sitting Exercise Name flexion and abduction and IR Side left Reps/Minutes 3 min Comments standing for IR behind back Standing Exercises Shoulder EXT Side left Resistance #3 TB Reps/Minutes 20x reps Shoulder Flexion Side left Resistance #3 TB Reps/Minutes 20x Scapular row Side bilateral Resistance #3 TB Reps/Minutes 20x pec stretch Standing Exercise Name manual Side bilateral Reps/Minutes 30 x 3 Comments supine Manual Therapy Treatment Soft Tissue Mobilization 1 Body Location left upper trap, pec, and levator, Supraspinatus Mobilization Type Myofascial Release Rolling Trigger Point Release Intensity/Depth Moderate Body Position Supine Comments Manual UT stretching. Joint Mobilizations 1 Joint GH joint Direction inf/ post Grade II Body Position Supine Manual Techniques PROM Type AAROM L shoulder IR,ER, FLEX, ABD Reps/Duration 15x PT-OP-R Modalities Start: 07/16/18 15:05 Freq: Status: Active Protocol: Document 09/14/18 11:10 (Rec: 09/14/18 11:18 [email or web address]) Hot Pack/Cold Pack Treatment Cold Pack Location L shoulder Patient Position Hooklying Treatment Duration (minutes) 10 Patient Tolerance Good PT-OP-T Assessment and Plan Start: 07/16/18 15:05 Freq: Status: Active Protocol: Document 09/14/18 11:10 (Rec: 09/14/18 11:18 [email or web address]) Physical Therapy Assessment Progress Towards Goals Progress Towards Goals Progressing Toward Goals Assessment Summary Assessment Pt progressing well with improving ROM, strength and exercise class tolerance. Reviewed HEP today. Plan to see again in 1 week and probable d/c if patient is tolerating classes and IND HEP well. Physical Therapy Plan Next Visit Focus/Plan Next Note Type Discharge Summary Next Visit Plan Last review of HEP, ROM and strength measurements.
--- NOTE | 2018-11-06 12:43 | PT.OPDS ---
Current Diagnoses Pain in left shoulder (09/14/18) Provider Visit Care Team Role Provider Type SADA Wood Primary Care Provider Non-Staff Specialty: Medical Address: [address] [facility], [place], [address] Email: David Oliver PA-C Attending Provider [employer] Specialty: Medical Address: [address] [place] [address], [place], [address] Email: Visit Number Visit Number 16 Discharge Summary PT-OP-B Current Condition Start: 07/16/18 15:05 Freq: Status: Active Protocol: Document 07/15/18 16:00 RCC (Rec: 07/16/18 17:15 RCC [email or web address]) Current Condition History of Current Condition Onset Date April 2018 or May 2018 Current Complaints L shoulder pain, weakness History of Current Condition Pt is a 78 y/o female presenting to physical therapy with a c/o L shoulder pain. Onset in April 2018 or May 2018, pt woke up one morning with shoulder pain on the L side. She felt like she may have slept on it wrong, but continued to be painful, along with weakness and worsening ROM. She denies any trauma to the L shoulder. She also denies any numbness or tingling. Pt is R hand dominant. Aggravating factors include: reaching behind her back and away from her body. The only relieving factor the pt has found is to not move her L hand or arm and always support it closer to her body. She has not found any medications to help and she has done ice with some assistance for short periods. Radiograph of L shoulder showed glenohumeral degenerative spurring and subchondral sclerosis, no calcifications in soft tissue. Radiograph also showed severe scoliosis. Pt has not had MRI yet. She does an exercises class weekly at the [employer], but is unable to participate in UE work due to her shoulder pain and limited motion. Prior Treatments and Tests radiograph (see above) Future Testing and Treatments Planned MRI of L shoulder (if PT fails ) Treatment Goals Patient/Caregiver Goals to be able to participate in [employer] strength and balance class, decrease pain Prior Functional Status Baseline Function- Recreation/Hobbies able to participate in [facility] [employer] balance and strength class without restrictions or pain Current Functional Impairments (Reported) Functional Limitations- Recreation/ unable to do UE work during Hobbies the [facility] strength and balance class. Personal Factors Other Personal Factors That May Effect hearing impairment (loss of Therapy/Recovery hearing but unable to afford hearing aids per pt), age- related visual problems, depression, pt reports tremors (on carbidopa- levadopa) PT-OP-C Subjective Start: 07/16/18 15:05 Freq: Status: Active Protocol: Document 09/14/18 11:10 SA (Rec: 09/14/18 11:18 SA [email or web address]) OP-PT Subjective Patient Comments Patient Comments Pt reports feeling stronger and doing well in exercise class 3x/wk. PT-OP-E Functional Tests Start: 07/16/18 15:05 Freq: Status: Active Protocol: Document 07/15/18 16:00 RCC (Rec: 07/16/18 17:15 RCC [email or web address]) Functional Tests Apley's Scratch Test Action 1- Left unable Action 1- Right able to perform Action 2- Left top of head Action 2- Right occiput Action 3- Left L5 Action 3- Right T6 PT-OP-F Manual Assessment Start: 07/16/18 15:05 Freq: Status: Active Protocol: Document 07/15/18 16:00 RCC (Rec: 07/16/18 17:15 RCC [email or web address]) Manual Assessments Soft Tissue Assessment Soft Tissue Mobility Assessment Tenderness to palpation: L supraspinatus, infraspinatus, B rhomboids, L UT and levator, L bicep tendon (long head), L anterior deltoid and pecs PT-OP-H Neuro Start: 07/16/18 15:05 Freq: Status: Active Protocol: Document 07/15/18 16:00 RCC (Rec: 07/16/18 17:15 RCC [email or web address]) Sensation Evaluation Gross Sensation Gross Sensation WNL Deep Tendon Reflex & Clonus Assessment Deep Tendon Reflex Bilateral Brachioradialis Deep Tendon Reflex 2+ Normal Bilateral Tricep Deep Tendon Reflex 2+ Normal Bilateral Bicep Deep Tendon Reflex 2+ Normal PT-OP-J Posture/Palpation/Skin Start: 07/16/18 15:05 Freq: Status: Active Protocol: Document 07/15/18 16:00 RCC (Rec: 07/16/18 17:15 RCC [email or web address]) Posture Evaluation Comments Posture Comments moderate forward head and rounded shoulders. L shoulder elevated with position of L shoulder adduction, IR and elbow flexion. PT-OP-K Range of Motion Start: 07/16/18 15:05 Freq: Status: Active Protocol: Document 08/19/18 09:45 RCC (Rec: 08/19/18 18:25 RCC [email or web address]) Shoulder Goniometric Range of Motion Shoulder Left Passive Testing Position Supine Flexion 150 Abduction 110 External Rotation at 0 degrees Abduction 54 Internal Rotation 68 Left Active Testing Position Sitting Flexion 92 Abduction 60 PT-OP-L Special Tests Start: 07/16/18 15:05 Freq: Status: Active Protocol: Document 07/15/18 16:00 RCC (Rec: 07/16/18 17:15 RCC [email or web address]) Special Tests Cervical Spine Special Tests Spurling's Test Test Results negative Foraminal Compression Test Results negative Shoulder Special Tests Yergason's Biceps Test Results positive L Speed's Biceps Test Results positive L Bansal Kelvin Impingement Test Results positive L Empty Can Test Results positive L Drop Arm Rotator Cuff Test Results positive L Belly Press Test Results negative Lift-Off Rotator Cuff Test Results negative Comments painful but able to do with L hand PT-OP-M Strength Start: 07/16/18 15:05 Freq: Status: Active Protocol: Document 07/15/18 16:00 RCC (Rec: 07/16/18 17:15 RCC [email or web address]) Shoulder Strength Shoulder Manual Muscle Testing Left Flexion 2 Poor Abduction (C5) 2 Poor External Rotation 3 Fair Internal Rotation 3 Fair Horizontal Abduction 3+ Fair+ Horizontal Adduction 3+ Fair+ Right Flexion 5 Normal Abduction (C5) 5 Normal External Rotation 5 Normal Internal Rotation 5 Normal Horizontal Abduction 5 Normal Horizontal Adduction 5 Normal Elbow/Forearm Strength Elbow and Forearm Manual Muscle Testing Right Flexion (C6) 3+ Fair+ Extension (C7) 4 Good Left Flexion (C6) 4+ Good+ Extension (C7) 4+ Good+ PT-OP-T Assessment and Plan Start: 07/16/18 15:05 Freq: Status: Active Protocol: Document 11/06/18 12:41 RCC (Rec: 11/06/18 12:43 RCC [email or web address]) Physical Therapy Assessment Assessment Summary Assessment Pt overall attended physical therapy from June to August 2018. She was able to return back to her exercise class with some modifications. She however did not return for a final follow up visit, therefore objective measures not reassess at time of d/c. The plan of care is now , recommend pt return back to MD if symptoms return and/or continue, but at this time will d/c pt. Physical Therapy Plan Discharge Physical Therapy Discharge Reasons No Longer Attending PT
== END 2018-11-19 11:09 | disposition home or self-care (01) ==
LOC: PHYS 09:00
PROVIDERS: PCP Nurse Practitioner; Visit Provider Physician Assistant
DX: M25.512 Pain in left shoulder (principal)
CPT/HCPCS: 97010; 97035; 97110; 97140; 97162

== ENCOUNTER → 2018-09-15 07:28 | Outpatient (CLI) | payer OTHER, MEDICAID, SELFPAY ==
--- NOTE | 2018-09-15 | DI.ECHO.S_ITS ---
[facility]---------+ [facility] +---------+ : : [address] : : [place], [place] : : : : [id number] : : : : Phone: [phone]---------+ Echocardiogram Report + + :Name: MATT WALTER Study Date: 09/15/2018 Height: 61 in : :[facility] Exam Location: [facility] Weight: 156 lb : : Gender: Female BSA: 1.7 m2 : :: 1940 Age: 78 yrs BP: 110/80 mmHg: :Reason For Study: Cardiomegaly : :Ordering Physician: Sarah : :Higinio Performed By: Beatriz Page : + + Interpretation Summary The ejection fraction is estimated to be 60-65%. The left atrium is severely dilated. There is mild to moderate tricuspid regurgitation. Right ventricular systolic pressure is estimated to be 35 mmHg plus the clinically estimated CVP which cannot be estimated on this exam. Procedure: A two-dimensional transthoracic echocardiogram with color flow and Doppler was performed. The study quality was technically adequate. Comparison is made with the echocardiogram of 12/22/2014. The patient had an extremely difficult time tolerating the exam. She has tremors that often interfered with the ECG readings. Due to the patient's tremors the ECG reading was unreliable but appeared to be in a normal sinus rhythm. Left Ventricle: The left ventricle is normal in size, wall thickness, and systolic function without any focal wall motion abnormalities. The ejection fraction is estimated to be 60-65%. Left ventricular wall motion is normal. Right Ventricle: The right ventricle is normal in size and function. Atria: The left atrium is severely dilated. The right atrium is mildly dilated. There is no Doppler evidence for an interatrial shunt. Mitral Valve: The mitral valve leaflets appear mildly thickened, but open well. There is mild mitral annular calcification. There is trace mitral regurgitation. Aortic Valve: The aortic valve is trileaflet. The aortic valve is slightly calcified. There is trace aortic regurgitation. Tricuspid Valve: The tricuspid valve leaflets are thin and pliable. There is mild to moderate tricuspid regurgitation. Right ventricular systolic pressure is estimated to be 35 mmHg plus the clinically estimated CVP which cannot be estimated on this exam. Pulmonic Valve: The pulmonic valve is not well visualized. There is trace pulmonic regurgitation. Great Vessels: The aortic root is normal size. The ascending aorta is normal in size. The pulmonary artery is not well visualized, but is probably normal size. The IVC does not appear dilated but does not appear to have respiratory collapse which suggests moderately high central venous pressure. The IVC has a measurement of 1.9 mm. Pericardium/ Pleura There is no pericardial effusion. There is no pleural effusion. MMode/2D Measurements & Calculations LVIDd: 4.2 cm LVOT diam: 2.0 cm LVIDs: 2.5 cm Ao root diam: 3.2 cm FS: 41.1 % asc Aorta Diam: 3.0 cm EPSS: 0.45 cm IVSd: 0.74 cm LVPWd: 0.75 cm LV lea. diameter/BSA (cm/m^2): 2.5 LV sys. diameter/BSA (cm/m^2): 1.5 LA A2 area: 31.6 cm2 RA long axis: 5.6 cm LA A4 area: 24.4 cm2 RA area: 19.8 cm2 LA length (vol): 6.7 cm RA vol: 59.5 ml LA vol: 97.7 ml RA : 35.0 ml/m2 LA vol index: 57.5 ml/m2 IVC diam: 1.9 cm RVD1 (basal): 3.9 cm Doppler Measurements & Calculations Ao V2 max: 122.3 cm/sec LVOT Max Brennen: 91.6 cm/sec Ao V2 mean: 87.0 cm/sec LV V1 max P.4 mmHg Ao max P.0 mmHg LV V1 VTI: 24.0 cm Ao mean P.4 mmHg MAGDA(I,D): 2.2 cm2 Ao V2 VTI: 33.3 cm MAGDA(V,D): 2.3 cm2 sev ratio: 0.72 MAGDA indexed to BSA (cm^2/m^2): 1.3 MV E max brennen: 84.4 cm/sec TR max brennen: 295.2 cm/sec MV A max brennen: 81.6 cm/sec TR max P.9 mmHg MV E/A: 1.0 PA V2 max: 56.6 cm/sec Med Peak E' Brennen: 6.3 cm/sec PA V2 mean: 35.5 cm/sec E/E' med: 13.4 PA mean P.57 mmHg Lat Peak E' Brennen: 7.5 cm/sec PA Accel Time: 0.12 sec E/E' lat: 11.2 E/e' average: 12.3 MV dec time: 0.21 sec MV P1/2t: 60.8 msec MV P1/2t max brennen: 84.2 cm/sec SV(LVOT): 73.8 ml MVA(P1/2t): 3.6 cm2 Reading Physician:04:18 PM
== END ==
PROVIDERS: PCP Nurse Practitioner; Visit Provider Nurse Practitioner
DX: I07.1 Rheumatic tricuspid insufficiency (principal)
CPT/HCPCS: 93306

== ENCOUNTER 2019-05-10 09:30 | Outpatient (RCR) | payer OTHER, MEDICAID, SELFPAY ==
--- NOTE | 2019-03-22 14:17 | ST.OPIE ---
Visit Care Team Role Provider Type SADA Wood Primary Care Provider Non-Staff Specialty: Medical Address: [address] [place] [address], [place], [address] Email: Racquel Marinelli MD Attending Provider Physician Specialty: Family Practice Address: [address] [place] [address], [facility], [place], [address] Email: [email or web address] Speech-Language Pathology Initial Evaluation LOGGING ENGINEER Voice Resonance Evaluation Start: 03/22/19 12:30 Freq: Status: Active Protocol: Document 03/22/19 12:31 ANTON (Rec: 03/22/19 12:45 ANTON [email or web address]) Voice and Resonance Assessment Session Time Visit Start Time 12:30 Visit Stop Time 13:20 Total Visit Minutes 50 Visit Information Visit Number Initial Evaluation Plan of Care Dates 03/22/19 - 06/15/19 Insurance Information [employer] Next Note Type Next Note Type Treatment Note Referral Referring Physician Dr. Miguel Marinelli Reason for Referral Dysphonia Setting Setting Outpatient Care Patient History General Information 79-yr-old female with tremors since >20 yrs, worse in last 10 yrs. About 1 yr ago, the pt started noticing people having difficulty hearing her. Within the last year, the pt was diagnosed with Parkinson's disease on left side, per pt report. She has a family hx of Parkinson's with 3 family members passing from PD complications. The pt takes Carbidopa/Levadopa and had initially experienced bad side effects (e.g., dizziness, headaches, hallucinations), but these improved when taken in combination with a side effect medication (pt unable to recall name of medication; will bring next session). The pt had been seen by Dr. Self, Neurologist at [facility] who diagnosed the PD, and had planned an evaluation for DBS but was unable d/t insurance limitations. Care was transferred to Dr. Henriquez who referred the pt to [facility] (Dr. Zimmer) for VF evaluation and discussion of Botox treatment, which the pt declined for now and will reconsider after winter when it is easier for her to make follow-up trips to [place]. Dr. Zimmer suggested voice therapy in the interim. Hearing Hearing Level Impaired Auditory History Does not wear hearing aids Vision Vision Status Impaired Comments Pt wears reading glasses [place] Langauge Language(s) Spoken in the Home [place] Occupational Status Occupation Status Retired Previous Therapy Previous Speech-Language Therapy No Subjective Subjective The pt arrived on time and provided case history. No relevant medical records available. - Laryngeal Performance S/Z Ratio S/Z Ratio 0.08 WNL (8:97/11:70) Functional for Speech Yes Reduced Laryngeal Function Relative to No Respiration Voice Handicap Index Function Subtotal 32 Severe Physical Subtotal 26 Severe Emotional Subtotal 26 Severe Total Score 84 Severe Severity Severe (61-120) CAPE-V Overall Severity 84% Severe Roughness 7% in sustained phonation; 0% in conversation (WFL) Breathiness 0% WNL Strain 65% Mod-Severe Pitch 76% Severe Loudness 29% Mild-Moderate Normal Resonance? Yes Additional Features Pitch Instability,Tremor Other Features Observed Pitch breaks with increased frequency (Hz) Maximum Phonation Time MPT Norms: Women (15-25) Men (25-35) Loudness (50-60 dB); Speaking Rate: Oral Reading of Sentences (190 Words Per Minute); Oral Reading of Paragraphs (160-170 WPM); Speaking Rate in Conversation (150-250 WPM) Maximum Phonation Time 12.8 sec (66dB) Maximum Phonation Time Reduced,Unstable Pitch, Unstable Loudness Maximum Phonation Time Comments 7.14 sec with loudness increased to 71 dB Jitter/Shimmer Norms: Jitter (Less than or equal to 1.040% - Frequency) Norms: Shimmer (Less than or equal to 3.810% - Amplitude) Jitter 2.11% Shimmer 4.38% Pitch [place] Pitch [place] Pitch Breaks,Reduced Range, Tension Pitch [place] Comments 129-444 Hz, pitch breaks and tremors throughout Breath Support Breath Support Conversation Comment Reduced. 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 The pt reports need for great effort to produce speech for any significant length of time and to be heard adequately by others. By the end of the evaluation, the pt reported feeling very tired and having a headache as a result of the amount of vocal use and effort put forth. Skilled intervention is medically necessary to increase pt's breath support for voice/ speech and improve stability of voice in order to participate in functional communicative activities. Prognosis Rehabilitation Potential Good - Recommendations Treatment Recommended Yes Treatment Frequency/Duration 1x/wk for 8 weeks Placement Recommendation Home Therapy Recommendations Ongoing pt education and assessment Exercises to increase breath support for voice/speech Exercises to improve vocal stability Short Term Goals 1. The pt will sustain phonation without pitch breaks for 10 seconds in order to increase breath support for voice and speech. 2. The pt will perform pitch glides from 175-330 Hz (E3-E4, 1 octave on piano scale) without breaks in pitch and with good vocal quality in 80% of opportunities to improve vocal quality and increase pitch range. 3. The pt will perform exercises (e.g., VF adduction) with 90% accuracy to increase stability of voice. Group Home Goals 1. The pt will sustain phonation without pitch breaks for 15 seconds (WFL) in order to increase breath support for voice and speech. 2. The pt perform pitch glides WFL for speech and hobby singing. 3. The pt will exhibit vocal stability (jitter, shimmer) WFL, as measured instrumentally. 4. The pt will report not greater than mild impact of voice as measured by total score of VHI patient rating scale. 5. The pt will produce voice with no greater than mild deficits as measured by CAPE-V clinician rating scale.
--- NOTE | 2019-03-29 09:28 | ST.OPTN ---
Visit Care Team Role Provider Type SADA Wood Primary Care Provider Non-Staff Address: [address] [place] [address], [place], [address] Racquel Marinelli MD Attending Provider Physician Address: [address] [place] [address], [address], [place], [address] PAYMENT POSTER Treatment Note PAYMENT POSTER Treatment Note Start: 03/22/19 12:30 Freq: Status: Active Protocol: Document 03/29/19 09:16 ANTON (Rec: 03/29/19 09:16 ANTON [email or web address]) Speech Pathology Treatment Note Session Time Visit Start Time 08:30 Visit Stop Time 09:15 Total Visit Minutes 45 Visit Information Plan of Care Dates 03/22/19 - 06/15/19 Insurance Information [employer] General Information General Information 79-yr-old female with tremors since >20 yrs, worse in last 10 yrs. About 1 yr ago, the pt started noticing people having difficulty hearing her. Within the last year, the pt was diagnosed with Parkinson's disease on left side, per pt report. She has a family hx of Parkinson's with 3 family members passing from PD complications. The pt takes Carbidopa/Levadopa and had initially experienced bad side effects (e.g., dizziness, headaches, hallucinations), but these improved when taken in combination with a side effect medication (pt unable to recall name of medication; will bring next session). The pt had been seen by Dr. Self, Neurologist at [facility] who diagnosed the PD, and had planned an evaluation for DBS but was unable d/t insurance limitations. Care was transferred to Dr. Henriquez who referred the pt to [facility] (Dr. Zimmer) for VF evaluation and discussion of Botox treatment, which the pt declined for now and will reconsider after winter when it is easier for her to make follow-up trips to [place]. Dr. Zimmer suggested voice therapy in the interim. Subjective Observations/Patient Presentation Pt arrived on time. No new complaints. Chief Complaint(s) Voice Rehab Expectation/Goals: Patient Goals Improve vocal quality and stability; reduce effort using voice Patient Knowledge/Awareness of PAYMENT POSTER Role Good in Treatment Objective Short Term Goals 79-yr-old female with tremors since >20 yrs, worse in last 10 yrs. About 1 yr ago, the pt started noticing people having difficulty hearing her. Within the last year, the pt was diagnosed with Parkinson's disease on left side, per pt report. She has a family hx of Parkinson's with 3 family members passing from PD complications. The pt takes Carbidopa/Levadopa and had initially experienced bad side effects (e.g., dizziness, headaches, hallucinations), but these improved when taken in combination with a side effect medication (pt unable to recall name of medication; will bring next session). The pt had been seen by Dr. Self, Neurologist at [facility] who diagnosed the PD, and had planned an evaluation for DBS but was unable d/t insurance limitations. Care was transferred to Dr. Henriquez who referred the pt to [facility] (Dr. Zimmer) for VF evaluation and discussion of Botox treatment, which the pt declined for now and will reconsider after winter when it is easier for her to make follow-up trips to [place]. Dr. Zimmer suggested voice therapy in the interim. Insurance Service Representative Goals 1. The pt will sustain phonation without pitch breaks for 15 seconds (WFL) in order to increase breath support for voice and speech. 2. The pt perform pitch glides WFL for speech and hobby singing. 3. The pt will exhibit vocal stability (jitter, shimmer) WFL, as measured instrumentally. 4. The pt will report not greater than mild impact of voice as measured by total score of VHI patient rating scale. 5. The pt will produce voice with no greater than mild deficits as measured by CAPE-V clinician rating scale. Treatment Activities Educated pt on subsystems of voice with focus on respiratory system. Initiated training of diaphragmatic breathing. Pt exhibited clavicular breathing with initial attempts while sitting in chair. Improved to diaphragmatic breathing when trialed in supine position and with visual/mirror feedback. During subsequent controlled breathing tasks, breathing shifted back toward clavicular breathing but improved to at least mixed clavicular and diaphragmatic with verbal prompts and tactile biofeedback (pt's hands on her chest and stomach). Trained pt in controlled breathing tasks with inhale for 3s and exhale for 6s. Pt was able to acheive full inhale/exhale in these times after 2-3 trials. Better able to sustain exhale on /s/. Introduced sustained phonation with /m/ and cues to feel a buzz at the lips. Instructions for home practice were provided orally and in writing. Pt verbalized understanding. Assessment Patient Response to Treatment Good Rehab Potential Good Impairments Identified Dysphonia,Vocal Quality Progress Towards Goals Good Progress Assessment of Overall Progress Improving Assessment of Improvement The pt was highly responsive to education and training today, able to shift breathing from clavical to diaphragm with visual and tactile biofeedback and verbal guidance. Pt exhibited moderate difficulty maintaining diaphragmatic breath while focusing also on counting, indicating reduced attention skills, which she verbally acknowledged. It is expected these exercises may improve this skills as well as benefit voice, and the pt was encouraged by this feedback. Also noted that tremor at jaw/ chin reduced as the pt increased her mental focus on breath work, which is encouraging and a positive prognostic factor for possibly reducing tremor at voice. Reviewed with Patient Goals,Progress Being Made,Home Exercise Program Patient/Caregiver Understanding Good Plan Therapeutic Contents Client Education,Home Exercise Program,Voice Training Provided Patient/Caregiver Instruction Home Exercise Program,Plan of Care,Questions/Concerns Therapy Recommendations Continue with Current Program
--- NOTE | 2019-04-05 09:35 | ST.OPTN ---
Visit Care Team Role Provider Type SADA Wood Primary Care Provider Non-Staff Address: [address] [place] [address], [place], [address] Racquel Marinelli MD Attending Provider Physician Address: [address] [place] [address], [address], [place], [address] GAS TURBINE POWERPLANT MECHANIC Treatment Note GAS TURBINE POWERPLANT MECHANIC Treatment Note Start: 03/22/19 12:30 Freq: Status: Active Protocol: Document 04/05/19 09:26 ANTON (Rec: 04/05/19 09:35 ANTON [email or web address]) Speech Pathology Treatment Note Session Time Visit Start Time 08:30 Visit Stop Time 09:20 Total Visit Minutes 50 Visit Information Visit Number 07/04 Plan of Care Dates 03/22/19 - 06/15/19 Insurance Information [employer] Setting Treatment Setting Outpatient Care Visit Type Note Type Treatment Note Next Note Type Next Note Type Treatment Note General Information General Information 79-yr-old female with tremors since >20 yrs, worse in last 10 yrs. About 1 yr ago, the pt started noticing people having difficulty hearing her. Within the last year, the pt was diagnosed with Parkinson's disease on left side, per pt report. She has a family hx of Parkinson's with 3 family members passing from PD complications. The pt takes Carbidopa/Levadopa and had initially experienced bad side effects (e.g., dizziness, headaches, hallucinations), but these improved when taken in combination with a side effect medication (pt unable to recall name of medication; will bring next session). The pt had been seen by Dr. Self, Neurologist at [facility] who diagnosed the PD, and had planned an evaluation for DBS but was unable d/t insurance limitations. Care was transferred to Dr. Henriquez who referred the pt to [facility] (Dr. Zimmer) for VF evaluation and discussion of Botox treatment, which the pt declined for now and will reconsider after winter when it is easier for her to make follow-up trips to [place]. Dr. Zimmer suggested voice therapy in the interim. Subjective Observations/Patient Presentation Pt arrived on time. No new complaints. Chief Complaint(s) Voice Rehab Expectation/Goals: Patient Goals Improve vocal quality and stability; reduce effort using voice Patient Knowledge/Awareness of GAS TURBINE POWERPLANT MECHANIC Role Good in Treatment Objective Short Term Goals 1. The pt will sustain phonation without pitch breaks for 10 seconds in order to increase breath support for voice and speech. 2. The pt will perform pitch glides from 175-330 Hz (E3-E4, 1 octave on piano scale) without breaks in pitch and with good vocal quality in 80% of opportunities to improve vocal quality and increase pitch range. 3. The pt will perform exercises (e.g., VF adduction) with 90% accuracy to increase stability of voice. Cost Control Specialist Goals 1. The pt will sustain phonation without pitch breaks for 15 seconds (WFL) in order to increase breath support for voice and speech. 2. The pt perform pitch glides WFL for speech and hobby singing. 3. The pt will exhibit vocal stability (jitter, shimmer) WFL, as measured instrumentally. 4. The pt will report not greater than mild impact of voice as measured by total score of VHI patient rating scale. 5. The pt will produce voice with no greater than mild deficits as measured by CAPE-V clinician rating scale. Treatment Activities Educated pt on subsystems of voice with focus on respiratory system. Initiated training of diaphragmatic breathing. Pt exhibited clavicular breathing with initial attempts while sitting in chair. Improved to diaphragmatic breathing when trialed in supine position and with visual/mirror feedback. During subsequent controlled breathing tasks, breathing shifted back toward clavicular breathing but improved to at least mixed clavicular and diaphragmatic with verbal prompts and tactile biofeedback (pt's hands on her chest and stomach). Trained pt in controlled breathing tasks with inhale for 3s and exhale for 6s. Pt was able to acheive full inhale/exhale in these times after 2-3 trials. Better able to sustain exhale on /s/. Introduced sustained phonation with /m/ and cues to feel a buzz at the lips. Instructions for home practice were provided orally and in writing. Pt verbalized understanding. Assessment Patient Response to Treatment Good Rehab Potential Good Impairments Identified Dysphonia,Vocal Quality Progress Towards Goals Good Progress Assessment of Overall Progress Improving Assessment of Improvement The pt was highly responsive to education and training today, able to shift breathing from clavical to diaphragm with visual and tactile biofeedback and verbal guidance. Pt exhibited moderate difficulty maintaining diaphragmatic breath while focusing also on counting, indicating reduced attention skills, which she verbally acknowledged. It is expected these exercises may improve this skills as well as benefit voice, and the pt was encouraged by this feedback. Also noted that tremor at jaw/ chin reduced as the pt increased her mental focus on breath work, which is encouraging and a positive prognostic factor for possibly reducing tremor at voice. Reviewed with Patient Goals,Progress Being Made,Home Exercise Program Patient/Caregiver Understanding Good Plan Therapeutic Contents Client Education,Home Exercise Program,Voice Training Provided Patient/Caregiver Instruction Home Exercise Program,Plan of Care,Questions/Concerns Therapy Recommendations Continue with Current Program
--- NOTE | 2019-04-12 16:04 | ST.OPTN ---
Visit Care Team Role Provider Type SADA Wood Primary Care Provider Non-Staff Address: [address] [place] [address], [place], [address] Racquel Marinelli MD Attending Provider Physician Address: [address] [place] [address], [address], [place], [address] ANESTHESIOLOGY FELLOW Treatment Note ANESTHESIOLOGY FELLOW Treatment Note Start: 03/22/19 12:30 Freq: Status: Active Protocol: Document 04/12/19 14:23 ANTON (Rec: 04/12/19 14:26 ANTON [email or web address]) Speech Pathology Treatment Note Session Time Visit Start Time 09:30 Visit Stop Time 10:15 Total Visit Minutes 45 Visit Information Visit Number 08/01 Plan of Care Dates 03/22/19 - 06/15/19 Insurance Information [employer] Setting Treatment Setting Outpatient Care Visit Type Note Type Treatment Note Next Note Type Next Note Type Treatment Note General Information General Information 79-yr-old female with tremors since >20 yrs, worse in last 10 yrs. About 1 yr ago, the pt started noticing people having difficulty hearing her. Within the last year, the pt was diagnosed with Parkinson's disease on left side, per pt report. She has a family hx of Parkinson's with 3 family members passing from PD complications. The pt takes Carbidopa/Levadopa and had initially experienced bad side effects (e.g., dizziness, headaches, hallucinations), but these improved when taken in combination with a side effect medication (pt unable to recall name of medication; will bring next session). The pt had been seen by Dr. Self, Neurologist at [facility] who diagnosed the PD, and had planned an evaluation for DBS but was unable d/t insurance limitations. Care was transferred to Dr. Henriquez who referred the pt to [facility] (Dr. Zimmer) for VF evaluation and discussion of Botox treatment, which the pt declined for now and will reconsider after winter when it is easier for her to make follow-up trips to [place]. Dr. Zimmer suggested voice therapy in the interim. Subjective Observations/Patient Presentation Pt arrived on time. No new complaints. Pt reported difficulty recalling instructions for exercises from written instructions only and requested video demonstration be made on her phone. ANESTHESIOLOGY FELLOW agreeable to this. Chief Complaint(s) Voice Rehab Expectation/Goals: Patient Goals Improve vocal quality and stability; reduce effort using voice Patient Knowledge/Awareness of ANESTHESIOLOGY FELLOW Role Good in Treatment Objective Short Term Goals 1. The pt will sustain phonation without pitch breaks for 10 seconds in order to increase breath support for voice and speech. 2. The pt will perform pitch glides from 175-330 Hz (E3-E4, 1 octave on piano scale) without breaks in pitch and with good vocal quality in 80% of opportunities to improve vocal quality and increase pitch range. 3. The pt will perform exercises (e.g., VF adduction) with 90% accuracy to increase stability of voice. Sander Machine Goals 1. The pt will sustain phonation without pitch breaks for 15 seconds (WFL) in order to increase breath support for voice and speech. 2. The pt perform pitch glides WFL for speech and hobby singing. 3. The pt will exhibit vocal stability (jitter, shimmer) WFL, as measured instrumentally. 4. The pt will report not greater than mild impact of voice as measured by total score of VHI patient rating scale. 5. The pt will produce voice with no greater than mild deficits as measured by CAPE-V clinician rating scale. Treatment Activities Re-educated pt RE diphragmatic breathing and forward resonance with /m/. Education provided orally and with video creation on her cell phone ( ANESTHESIOLOGY FELLOW only in video) to assist with home practice. The pt performed tasks maintaining continuous phonation, vocal tremor ever present. Pt identified four phrases/ sentences she commonly says to others. Using these speech examples, trained pt in mimicking speech intonation in humming with focus on respiratory support and forward resonance. Pt returned demonstration and completed task using a variety of intonation patterns. Again, she maintained continuous phonation with reduced vocal tension, although tremor remained throughout. Education provided to pt that voice therapy will not eliminate tremor but may reduce episodes of aphonia, reduce the strained/strangled quality of voice, and improve ease of voicing. Also urged pt to consider Botox in Dec prior to onset of significant winter weather, considering its effects typically last ~3 mos, which would be Jun or July when, hopefully the worst of the winter weather is over and travel to and from [place] would not be difficult. She stated she would consider this but was concerned that may put added burden on her daughter, who would need to provide transportation. Assessment Patient Response to Treatment Good Rehab Potential Good Impairments Identified Dysphonia,Vocal Quality Progress Towards Goals Good Progress Assessment of Overall Progress Improving Assessment of Improvement The pt is making good progress with diaphragmatic breathing in conjunction with forward focus resonance, with improved vocal quality and continuous phonation. No episodes of aphonia were observed. Tremor continues, which persists as the primary contributing factor to vocal impairment. The pt appears to have a good understanding of expectations and limitations of voice therapy and expresses strong interest in Botox injections when the weather does not impede travel to and from [place]. She has been compliant with HEP tasks and hopefully will benefit from video instructions. Reviewed with Patient Goals,Progress Being Made,Home Exercise Program Patient/Caregiver Understanding Good Plan Therapeutic Contents Client Education,Home Exercise Program,Voice Training Provided Patient/Caregiver Instruction Home Exercise Program,Plan of Care,Questions/Concerns Therapy Recommendations Continue with Current Program
--- NOTE | 2019-04-19 11:27 | ST.OPTN ---
Visit Care Team Role Provider Type SADA Wood Primary Care Provider Non-Staff Address: [address] [place] [address], [place], [address] Racquel Marinelli MD Attending Provider Physician Address: [address] [place] [address], [address], [place], [address] PIT BOSS Treatment Note PIT BOSS Treatment Note Start: 03/22/19 12:30 Freq: Status: Active Protocol: Document 04/19/19 10:23 ANTON (Rec: 04/19/19 10:30 ANTON [email or web address]) Speech Pathology Treatment Note Session Time Visit Start Time 09:30 Visit Stop Time 10:18 Total Visit Minutes 48 Visit Information Visit Number 08/01 Plan of Care Dates 03/22/19 - 06/15/19 Insurance Information [employer] Setting Treatment Setting Outpatient Care Visit Type Note Type Treatment Note Next Note Type Next Note Type Treatment Note General Information General Information 79-yr-old female with tremors since >20 yrs, worse in last 10 yrs. About 1 yr ago, the pt started noticing people having difficulty hearing her. Within the last year, the pt was diagnosed with Parkinson's disease on left side, per pt report. She has a family hx of Parkinson's with 3 family members passing from PD complications. The pt takes Carbidopa/Levadopa and had initially experienced bad side effects (e.g., dizziness, headaches, hallucinations), but these improved when taken in combination with a side effect medication (pt unable to recall name of medication; will bring next session). The pt had been seen by Dr. Self, Neurologist at [facility] who diagnosed the PD, and had planned an evaluation for DBS but was unable d/t insurance limitations. Care was transferred to Dr. Henriquez who referred the pt to [facility] (Dr. Zimmer) for VF evaluation and discussion of Botox treatment, which the pt declined for now and will reconsider after winter when it is easier for her to make follow-up trips to [place]. Dr. Zimmer suggested voice therapy in the interim. Subjective Observations/Patient Presentation Pt arrived on time. No new complaints. Pt reported video instructions created at last session have been helpful. Also noted a friend recently commented that the pt's voice sounded stronger. Chief Complaint(s) Voice Rehab Expectation/Goals: Patient Goals Improve vocal quality and stability; reduce effort using voice Patient Knowledge/Awareness of PIT BOSS Role Good in Treatment Objective Short Term Goals 1. The pt will sustain phonation without pitch breaks for 10 seconds in order to increase breath support for voice and speech. 2. The pt will perform pitch glides from 175-330 Hz (E3-E4, 1 octave on piano scale) without breaks in pitch and with good vocal quality in 80% of opportunities to improve vocal quality and increase pitch range. 3. The pt will perform exercises (e.g., VF adduction) with 90% accuracy to increase stability of voice. [employer] Mill Worker Goals 1. The pt will sustain phonation without pitch breaks for 15 seconds (WFL) in order to increase breath support for voice and speech. 2. The pt perform pitch glides WFL for speech and hobby singing. 3. The pt will exhibit vocal stability (jitter, shimmer) WFL, as measured instrumentally. 4. The pt will report not greater than mild impact of voice as measured by total score of VHI patient rating scale. 5. The pt will produce voice with no greater than mild deficits as measured by CAPE-V clinician rating scale. Treatment Activities Continued training forward focus with single and 2- syllable words beginning with /m/. The pt demonstrated intermittent rough vocal quality, usually able to self- monitor and correct. She exhibited good use of diaphragmatic breath support and forward focus resonance. Initially with single word productions, she exhibited occasional glottal delgado. Education with demonstration was provided, and the pt verbalized understanding and modified voice in intonation exercises to demonstrate ability to recognize and correct glottal delgado. Pt sustained phonation up to 11.9 sec, and produced pitch glides from 180-313 Hz at an avg of 75 dB. In conversation, the pt exhibited continuous phonation. Occasional increased roughness at ends of sentences as she ran out of breath. Skilled feedback provided with recommendation to take breaths as needed at natural pauses. The pt performed this with a few example sentences and was in agreement. Assessment Patient Response to Treatment Good Rehab Potential Good Impairments Identified Dysphonia,Vocal Quality Progress Towards Goals Good Progress Assessment of Overall Progress Improving Assessment of Improvement The pt is making good progress with diaphragmatic breathing in conjunction with forward focus resonance, with improved vocal quality and continuous. Noticeable improvement in vocal strength and quality is being made. The pt continues with vocal tremor, but demonstrates improved loudness and endurance. MPT is slowly improving. Pt reports achieving 16 sec of sustained phonation at home. She exhibits excellent awareness of and ability to produce target postures for vocal exercises (i.e., tense vs relaxed larynx, breath support from diaphragm), as evidenced by her ability to shift intentionally between tense and relaxed voice and to self-monitor and -correct during exercises. She has advanced from phoneme production to 2-syllable words while maintaining forward focus and adequate breath support. The pt noted occasionally feeling that she is running out of breath. She was responsive to initial education/training in taking breaths at natural pauses as needed. Reviewed with Patient Goals,Progress Being Made,Home Exercise Program Patient/Caregiver Understanding Poor Plan Treatment Emphasis Next Session Fwd focus & breath support in speech Therapeutic Contents Client Education,Home Exercise Program,Voice Training Provided Patient/Caregiver Instruction Home Exercise Program,Plan of Care,Questions/Concerns Therapy Recommendations Continue with Current Program
--- NOTE | 2019-04-26 13:58 | ST.OPTN ---
Visit Care Team Role Provider Type SADA Wood Primary Care Provider Non-Staff Address: [address] [place] [address], [place], [address] Racquel Marinelli MD Attending Provider Physician Address: [address] [place] [address], [address], [place], [address] RN MEDICARE Treatment Note RN MEDICARE Treatment Note Start: 03/22/19 12:30 Freq: Status: Active Protocol: Document 04/26/19 13:39 ANTON (Rec: 04/26/19 13:55 ANTON [id number]) Speech Pathology Treatment Note Session Time Visit Start Time 09:30 Visit Stop Time 10:15 Total Visit Minutes 45 Visit Information Visit Number 09/01 Plan of Care Dates 03/22/19 - 06/15/19 Insurance Information [employer] Setting Treatment Setting Outpatient Care Visit Type Note Type Treatment Note Next Note Type Next Note Type Treatment Note General Information General Information 79-yr-old female with tremors since >20 yrs, worse in last 10 yrs. About 1 yr ago, the pt started noticing people having difficulty hearing her. Within the last year, the pt was diagnosed with Parkinson's disease on left side, per pt report. She has a family hx of Parkinson's with 3 family members passing from PD complications. The pt takes Carbidopa/Levadopa and had initially experienced bad side effects (e.g., dizziness, headaches, hallucinations), but these improved when taken in combination with a side effect medication (pt unable to recall name of medication; will bring next session). The pt had been seen by Dr. Self, Neurologist at [facility] who diagnosed the PD, and had planned an evaluation for DBS but was unable d/t insurance limitations. Care was transferred to Dr. Henriquez who referred the pt to [facility] (Dr. Zimmer) for VF evaluation and discussion of Botox treatment, which the pt declined for now and will reconsider after winter when it is easier for her to make follow-up trips to [place]. Dr. Zimmer suggested voice therapy in the interim. Subjective Observations/Patient Presentation Pt arrived on time. No new complaints. Pt reported family members commented on her stronger voice during the recent holiday. Pt also feels pleased with progress and able to sing again. Is planning to join [facility] Garzon at [facility] , which was strongly encouraged by RN MEDICARE. Chief Complaint(s) Voice Rehab Expectation/Goals: Patient Goals Improve vocal quality and stability; reduce effort using voice Patient Knowledge/Awareness of RN MEDICARE Role Good in Treatment Objective Short Term Goals 1. The pt will sustain phonation without pitch breaks for 10 seconds in order to increase breath support for voice and speech. 2. The pt will perform pitch glides from 175-330 Hz (E3-E4, 1 octave on piano scale) without breaks in pitch and with good vocal quality in 80% of opportunities to improve vocal quality and increase pitch range. 3. The pt will perform exercises (e.g., VF adduction) with 90% accuracy to increase stability of voice. Senior Care Goals 1. The pt will sustain phonation without pitch breaks for 15 seconds (WFL) in order to increase breath support for voice and speech. 2. The pt perform pitch glides WFL for speech and hobby singing. 3. The pt will exhibit vocal stability (jitter, shimmer) WFL, as measured instrumentally. 4. The pt will report not greater than mild impact of voice as measured by total score of VHI patient rating scale. 5. The pt will produce voice with no greater than mild deficits as measured by CAPE-V clinician rating scale. Treatment Activities Continued training forward focus resonance using 2- syllable words beginning with /m/ and m-focused sentences. Pt initially exhibited intermittent glottal delgado. Skilled feedback provided. Pt benefited from reading words as questions first (upward intonation) and then as statements (downward intonation) to eliminate glottal delgado and reduce laryngeal tension. Pt carried this over well to sentences, maintianing clear vocal quality. With increased length of sentences, the pt required added breaths. Training and feedback provided RE natural pauses and places to take breaths without interrupting speech fluency. Pt demonstrated excellent ability to find and breath at appropriate places, which allowed her to maintain her good vocal quality. Pt conversed at loudness levels between 67-73 dB (WNL), which also assisted in maintaining good vocal quality and 100% speech intelligibility. Assessment Patient Response to Treatment Good Rehab Potential Good Impairments Identified Dysphonia,Vocal Quality Progress Towards Goals Good Progress Assessment of Overall Progress Improving Assessment of Improvement Excellent progress in therapeutic tasks and conversational speech. The pt' s voice is much stronger than at SOC, and she is able to maintain this improved quality of voice with sufficient breath support. Vocal tremor remains present but pt is able to participate in greater durations of conversation and has resumed singing, which appears to delight her. Agreed to change frequency of therapy. Will f/u in 2 wks and continue as needed with visits every 2-3 wks, anticipate 1-3 more visits. Pt will postpone Botox until and expressed interest in being seen for voice therapy again at that time. Reviewed with Patient Goals,Progress Being Made,Home Exercise Program Patient/Caregiver Understanding Poor Plan Comment Reduce frequency to 1 visit every 2-3 wks for 1-3 visits. Treatment Emphasis Next Session Fwd focus & breath support in speech Therapeutic Contents Client Education,Home Exercise Program,Voice Training Provided Patient/Caregiver Instruction Home Exercise Program,Plan of Care,Questions/Concerns Therapy Recommendations Continue with Current Program
--- NOTE | 2019-05-10 12:38 | ST.OPDS ---
Visit Care Team Role Provider Type SADA Wood Primary Care Provider Non-Staff Address: [address] [place] [address], [place], [address] Racquel Marinelli MD Attending Provider Physician Address: [address] [place] [address], [address], [place], [address] VEST TAILOR Treatment Note VEST TAILOR Treatment Note Start: 03/22/19 12:30 Freq: Status: Active Protocol: Document 05/10/19 09:17 ANTON (Rec: 05/10/19 12:38 ANTON [email or web address]) Speech Pathology Treatment Note Session Time Visit Start Time 09:30 Visit Stop Time 10:15 Total Visit Minutes 45 Visit Information Visit Number 10/01 Plan of Care Dates 03/22/19 - 06/15/19 Insurance Information [employer] Setting Treatment Setting Outpatient Care Visit Type Note Type Discharge Summary General Information General Information 79-yr-old female with tremors since >20 yrs, worse in last 10 yrs. About 1 yr ago, the pt started noticing people having difficulty hearing her. Within the last year, the pt was diagnosed with Parkinson's disease on left side, per pt report. She has a family hx of Parkinson's with 3 family members passing from PD complications. The pt takes Carbidopa/Levadopa and had initially experienced bad side effects (e.g., dizziness, headaches, hallucinations), but these improved when taken in combination with a side effect medication (pt unable to recall name of medication; will bring next session). The pt had been seen by Dr. Self, Neurologist at [facility] who diagnosed the PD, and had planned an evaluation for DBS but was unable d/t insurance limitations. Care was transferred to Dr. Henriquez who referred the pt to [facility] (Dr. Zimmer) for VF evaluation and discussion of Botox treatment, which the pt declined for now and will reconsider after winter when it is easier for her to make follow-up trips to [place]. Dr. Zimmer suggested voice therapy in the interim. Subjective Observations/Patient Presentation Pt arrived on time. At start of session, the c/o being exceptionally tired and off balance today. No symptoms of confusion, feeling ill, etc. She stated she would rest the rest of the day and see the dr tomorrow if not feeling better. At end of session, the pt reported feeling better, not as off balance. She planned to return home by bus and rest. Chief Complaint(s) Voice Rehab Expectation/Goals: Patient Goals Improve vocal quality and stability; reduce effort using voice Patient Knowledge/Awareness of VEST TAILOR Role Excellent in Treatment Objective Short Term Goals 1. The pt will sustain phonation without pitch breaks for 10 seconds in order to increase breath support for voice and speech. GOAL MET 2. The pt will perform pitch glides from 175-330 Hz (E3-E4, 1 octave on piano scale) without breaks in pitch and with good vocal quality in 80% of opportunities to improve vocal quality and increase pitch range. GOAL MET 3. The pt will perform exercises (e.g., VF adduction) with 90% accuracy to increase stability of voice. GOAL MET Senior Living Goals 1. The pt will sustain phonation without pitch breaks for 15 seconds (WFL) in order to increase breath support for voice and speech. GOAL NOT MET, MPT=12.4 sec 2. The pt perform pitch glides WFL for speech and hobby singing. GOAL MET 3. The pt will exhibit vocal stability (jitter, shimmer) WFL, as measured instrumentally. GOAL NOT MET, MILD IMPAIRMENT 4. The pt will report not greater than mild impact of voice as measured by total score of VHI patient rating scale. GOAL MET 5. The pt will produce voice with no greater than mild deficits as measured by CAPE-V clinician rating scale. GOAL NOT MET, Mild-moderate deficits, primarily neurologic tremor Treatment Activities The pt exhibited good vocal loudness, breath support, and use of forward focus resonance in structured tasks and spontaneous conversation. Average loudness levels in conversation were 73 dB (WNL). Perceptual ratings of voice and progress were made by pt and Clinician using voice recordings taken today and at time of initial evaluation (). Both pt and VEST TAILOR perceived improved loudness and stability of voice, despite continued presence of vocal tremor. Pt completed VHI with scored demonstrating significant improvement since SOC: Overall Score 32 Mild (84/severe at SOC), Functional Scale 13 Moderate (32/severe at SOC), Physical Scale 10 WNL (26/ severe at SOC), and Emotional Scale 9 Mild (26/severe at SOC). The pt stated, I'm not embarrassed to have conversations anymore. CAPE-V Clinician rating: Significant improvement since SOC: Overall Severity Mild- Moderate (Severe at SOC); Roughness WNL (Mild at SOC) Breathiness WNL (WNL at SOC); Mild Strain (Mod-Severe at SOC); Mild-Mod Pitch (Severe at SOC); Loudness WNL ( Mild- Moderate at SOC); Resonance WNL (WNL at SOC). The pt continues with vocal and bodily (limbs, facial) tremors. Measurements of Jitter and Shimmer also revealed significant improvement of pitch and loudness stability over course of treatment: Jitter improved from 2.11% at SOC to 1.82% today (Normal = 1 .04% or below), and Shimmer improved from 4.38% at SOC to 3.95% today (Normal = 3.81% or below). Skilled education and feedback was provided to the pt regarding progress and recommendations for continued home practice. Discussed POC and agreed to discharge from skilled intervention today and return to Speech Therapy following Botox injections to VFs for treatment of vocal tremor, should the pt choose Botox tx. Assessment Patient Response to Treatment Excellent Rehab Potential Good Impairments Identified Dysphonia,Vocal Quality Progress Towards Goals Excellent Progress,Good Progress Assessment of Overall Progress Improving Assessment of Improvement The pt continues with moderate spasmodic dysphonia but has made excellent progress over the course of treatment, as reflected in measurements of vocal stability, loudness, and pt confidence. She has increased breath support for voice and speech, exhibits only mild impairments of instability despite presence of neurologic vocal tremors, and reports significant re- engagement in social and communicative opportunities. She has been consistently compliant with HEP and has demonstrated excellent understanding of education and training of exercises and voice techniques. She has been a juan antonio to work with, and I welcome the opportunity to work with her again, should she pursue Botox treatment of vocal tremors. Reviewed with Patient Goals,Progress Being Made,Home Exercise Program Patient/Caregiver Understanding Excellent Plan Therapeutic Contents Client Education,Home Exercise Program,Voice Training Provided Patient/Caregiver Instruction Home Exercise Program,Plan of Care,Questions/Concerns Therapy Recommendations Discharge to Home Exercise Program
== END 2019-05-10 10:30 ==
LOC: SP 09:30
PROVIDERS: PCP Nurse Practitioner; Visit Provider Student in an Organized Health Care Education/Training Program
DX: R49.0 Dysphonia (principal); G20 Parkinson's disease
CPT/HCPCS: 92507; 92520; 92524